=== PATIENT | female | born 1930 | race Caucasian/White ===

== ENCOUNTER 2017-02-22 22:06 | Observation (INO) ==
[2017-02-22 23:21] LABS: Bilirubin,Urine Negative (Negative); Blood,Urine Negative (Negative); Clarity,Urine Clear (Clear); Color,Urine Yellow (Yellow); Glucose,Urine (UA) Normal (Normal); Ketones,Urine Negative (Negative); Leukocyte Esterase,Urine Negative (Negative); Nitrite,Urine Negative (Negative); Protein,Urine Negative (Neg-Trace); Specific Gravity,Urine < 1.005 (1.010-1.025); Urobilinogen,Urine Normal (Normal)
[2017-02-22 23:25] LABS: Basophils % 0.4 %; Eosinophils % 0.6 %; Hematocrit 35.1 % (35.3-44.9); Hemoglobin 11.9 g/dL (11.5-15.4); Immature Granulocytes % 0.9 % (0-4); Lymphocytes # 0.8 K/mcL (0.6-4.6); Lymphocytes % 12.2 %; Mean Corpuscular HGB Conc 33.9 g/dL (31.6-35.5); Mean Corpuscular Hemoglobin 29.2 pg (28.0-33.3); Mean Corpuscular Volume 86.2 fL (83.0-100.0); Mean Platelet Volume 10.4 fL (9.4-12.4); Monocytes # 0.5 K/mcL (0.0-1.3); Monocytes % 6.8 %; Neutrophils # 5.4 K/mcL (1.6-8.9); Platelet Count 172 K/mcL (140-400); Red Blood Count 4.07 M/mcL (3.82-4.97); Red Cell Distribution Width 13.2 % (11.5-14.5); Segmented Neutrophils % 79.1 %
[2017-02-22 23:29] LABS: INR 1.1; Prothrombin Time 11.6 Seconds (9.4-12.1)
[2017-02-22 23:32] LABS: Activated Partial Thrombo Time 21.1 Seconds (26.0-36.0)
[2017-02-23 00:32] LABS: Alanine Aminotransferase 36 Units/L (0-55); Albumin 4.2 g/dL (3.5-5.0); Albumin/Globulin Ratio 1.3 (1.1-2.2); Alkaline Phosphatase 88 Units/L (38-126); Aspartate Amino Transferase 32 Units/L (5-34); BUN/Creatinine Ratio 14 (6-26); Bilirubin,Direct 0.3 mg/dL (0.0-0.5); Bilirubin,Indirect 0.3 mg/dL (0.0-1.2); Bilirubin,Total 0.6 mg/dL (0.2-1.2); Blood Urea Nitrogen 14 mg/dL (7-20); Calcium 9.8 mg/dL (8.6-10.8); Carbon Dioxide 19 mEq/L (19-29); Chloride 96 mEq/L (98-109); Creatine Kinase 313 Units/L (29-168); Globulin 3.3 g/dL (2.4-3.5); Glucose 135 mg/dL (70-99); Osmolality,Calculated 269 (280-300); Potassium 4.1 mEq/L (3.5-4.5); Sodium 128 mEq/L (136-145); Total Protein 7.5 g/dL (6.0-8.3); eGFR For African Americans > 60 (> 60); eGFR For Non-African Americans 53 (> 60)
[2017-02-23] MEDS ORDERED: *HR* HYDROmorphone (PF) 1 MG/ML SYRINGE IVP ONE (00:35)
--- NOTE | 2017-02-23 00:39 | Emergency Department Note ---
Disposition Clinical Impression: Unwitnessed fall, Elevated blood pressure reading Disposition: Admitted As Inpatient Condition: Good Referrals: Kota Rubi MD [Primary Care Provider] - Forms: ED Satisfaction Letter Time of Disposition: 01:20 General Adult HPI - General Chief complaint: ED Back Pain/Injury Stated complaint: Fall/Left flank pain Time Seen by Provider: 02/22/17 22:14 Source: patient Mode of arrival: ambulatory Limitations: no limitations Nursing Notes Reviewed: Yes Vital Signs Reviewed: Yes - History of Present Illness HPI Narrative: 86-year-old female brought to the emergency department by EMS after a fall at home. Patient fall was unwitnessed and she is unable to give a history regarding her case and presentation. Patient is confused upon initial arrival to the emergency department and has difficulty providing history during the exam. Patient was recently seen in the emergency department for headache with elevated blood pressure. She was given Lopressor which decreased her blood pressure and she was sent home. Patient denies headache or chest pain or shortness of breath in the emergency department. She does complain of pain to the left ribs secondary to falling. Patient denies recent fever, chills, nausea , vomiting, diarrhea. Pain Scale: 7 - Related Data Home Medications Medication Instructions Recorded Confirmed Aspirin Enteric Coated [Aspirin EC] 81 mg PO DAILY 01/27/15 01/27/15 Cholecalciferol (Vitamin D3) 1,000 unit PO DAILY 01/27/15 01/27/15 [Vitamin D] Docusate [Colace] 100 mg PO BID 01/27/15 01/27/15 Doxepin [Sinequan] 150 mg PO HS 01/27/15 01/27/15 Esomeprazole Magnesium [Nexium] 40 mg PO DAILY 01/27/15 01/27/15 HYDROmorphone [Dilaudid] 2 mg PO Q6HR PRN 01/27/15 01/27/15 LORazepam [Ativan] 0.5 mg PO BID 01/27/15 01/27/15 Losartan [Cozaar] 100 mg PO DAILY 01/27/15 01/27/15 Metoprolol XL (24 HR) Succ [Toprol 100 mg PO DAILY 01/27/15 01/27/15 XL] Oxybutynin [Ditropan] 5 mg PO BID 09/09/15 09/09/15 Simvastatin [Zocor] 20 mg PO QPM 01/27/15 01/27/15 Previous Rx's Medication Instructions Recorded Ciprofloxacin HCl [Cipro] 250 mg PO BID #6 tablet 04/19/15 Phenazopyridine HCl [Pyridium] 200 mg PO TID #6 tab 04/19/15 Ondansetron HCl [Zofran] 4 mg PO Q6HR PRN #10 tablet 10/02/15 Ciprofloxacin [Cipro] 500 mg PO BID #14 tablet 12/01/16 Allergies Allergy/AdvReac Type Severity Reaction Status Date / Time acetaminophen [From Percocet] AdvReac Rash Verified 10/28/16 13:26 Oxycodone [From Percocet] AdvReac Rash Verified 10/28/16 13:26 Penicillins AdvReac Itching Verified 10/28/16 13:26 Sulfa (Sulfonamide AdvReac Vomiting Verified 10/28/16 13:26 Antibiotics) All systems ED: reviewed and negative except as stated. Review of Systems: As Per HPI Constitutional: Denies: fever, chills, weakness Cardiovascular: Denies: chest pain, palpitations Respiratory: Denies: cough, dyspnea, wheezes Gastrointestinal: Denies: abdominal pain, nausea, vomiting Genitourinary: Denies: urgency, dysuria, frequency Musculoskeletal: Reports: back pain. Denies: neck pain Past Medical History - Past Medical History Attestation: Yes The following information was validated with the patient. Source: patient Medical history: Reports: diabetes, hypertension, other Surgical history: Reports: appendectomy, , cancer surgery, colectomy, orthopedic, other, other Psychiatric history: Reports: no psych history COMPENSATION EXPERT history: Reports: no COMPENSATION EXPERT history - Social History Smoking Status: Never smoker Smokeless Tobacco Status: No Alcohol use: Reports: none Drug use: Reports: none Physical Exam General: Alert and in no acute distress Skin: Warm, dry, intact Head: Normocephalic and atraumatic Neck: Supple, trachea midline and no tenderness Cardiovascular: RRR, normal perfusion Respiratory: CTAB, no wheezing, cough, or respiratory distress Musculoskeletal: Normal strength, tenderness to palpation of the left inferior lateral ribs. GI: Soft, nontender, nondistended. Bowel sounds present Neuro: Oriented to person and place but not to situation. Patient moving all extremities equally, she is able to perform finger to nose testing however this is with difficulty. - General General appearance: alert, in no apparent distress Course Course Narrative: accepted sign out from Dr. Sanches, plan is to followup on CT scans and admit to medicine for syncope/hypertension ray will need an inhouse MRRodolfo Vital Signs Temperature 98.0 F 02/22/17 22:08 Pulse Rate 89 02/22/17 22:08 Respiratory Rate 16 02/22/17 22:08 Blood Pressure 198/142 02/22/17 22:08 O2 Sat by Pulse Oximetry 97 02/22/17 22:08 Temperature 98.0 F 02/22/17 22:08 Pulse Rate 82 02/22/17 23:13 Respiratory Rate 16 02/22/17 23:13 Blood Pressure 191/79 02/22/17 23:13 O2 Sat by Pulse Oximetry 98 02/22/17 23:13 Oxygen Delivery Oxygen Delivery Room Air Medical Decision Making - MDM Narrative Medical decision making narrative: Patient unable to provide history regarding why she fell. She does state that she does not believe she had chest pain prior to fall. Upon review of the patient's chart she has a history of significant narcotic use using Dilaudid 2 mg every 6 hours by mouth as needed for pain. She does state that she used her pain medications prior to the fall. Blood pressure was initially elevated at 210/90 on her initial evaluation. This improved with observation and control of the patient's pain in the left inferior lateral ribs and left upper quadrant abdomen. Patient is comfortable with the plan for admission to the hospital for further care and evaluation of her unwitnessed fall and her elevated blood pressures. - Medical Records Medical records reviewed: Yes I reviewed the patient's medical records. - Lab Data Lab results reviewed: Yes I reviewed the patient's lab results. Result diagrams: 02/22/17 23:00 02/23/17 00:02 Lab Results 02/22/17 02/22/17 02/22/17 Range/Units 23:00 23:00 23:13 WBC 6.8 (4.3-11.1) K/mcL RBC 4.07 (3.82-4.97) M/mcL Hgb 11.9 (11.5-15.4) g/dL Hct 35.1 L (35.3-44.9) % MCV 86.2 (83.0-100.0) fL MCH 29.2 (28.0-33.3) pg MCHC 33.9 (31.6-35.5) g/dL RDW 13.2 (11.5-14.5) % Plt Count 172 (140-400) K/mcL MPV 10.4 (9.4-12.4) fL Immature Gran % 0.9 (0-4) % Seg Neutrophils % 79.1 % Lymphocytes % 12.2 % Monocytes % 6.8 % Eosinophils % 0.6 % Basophils % 0.4 % Neutrophils # 5.4 (1.6-8.9) K/mcL Lymphocytes # 0.8 (0.6-4.6) K/mcL Monocytes # 0.5 (0.0-1.3) K/mcL Eosinophils # 0.0 (0.0-0.6) K/mcL Basophils # 0.0 (0.0-0.2) K/mcL PT 11.6 (9.4-12.1) Seconds INR 1.1 APTT 21.1 L (26.0-36.0) Seconds Sodium (136-145) mEq/L Potassium (3.5-4.5) mEq/L Chloride (98-109) mEq/L Carbon Dioxide (19-29) mEq/L BUN (7-20) mg/dL Creatinine (0.57-1.11) mg/dL Est GFR ( Amer) (> 60) Est GFR (Non-Af Amer) (> 60) BUN/Creatinine Ratio (6-26) Glucose (70-99) mg/dL Calculated Osmolality (280-300) Calcium (8.6-10.8) mg/dL Total Bilirubin (0.2-1.2) mg/dL Direct Bilirubin (0.0-0.5) mg/dL Indirect Bilirubin (0.0-1.2) mg/dL AST (5-34) Units/L ALT (0-55) Units/L Alkaline Phosphatase (38-126) Units/L Creatine Kinase (29-168) Units/L Troponin I (0-0.03) ng/mL Serum Total Protein (6.0-8.3) g/dL Albumin (3.5-5.0) g/dL Globulin (2.4-3.5) g/dL Albumin/Globulin Ratio (1.1-2.2) Urine Color Yellow (Yellow) Urine Clarity Clear (Clear) Urine pH 7.0 (5.0-8.0) pH Units Ur Specific Coleman < 1.005 L (1.010-1.025) Urine Protein Negative (Neg-Trace) mg/dL Urine Glucose (UA) Normal (Normal) mg/dL Urine Ketones Negative (Negative) mg/dL Urine Blood Negative (Negative) Urine Nitrite Negative (Negative) Urine Bilirubin Negative (Negative) Urine Urobilinogen Normal (Normal) mg/dL Ur Leukocyte Esterase Negative (Negative) Ur Culture Indicated? NO (NO) Specimen Rejected 02/22/17 02/23/17 02/23/17 Range/Units 23:28 00:02 00:02 WBC (4.3-11.1) K/mcL RBC (3.82-4.97) M/mcL Hgb (11.5-15.4) g/dL Hct (35.3-44.9) % MCV (83.0-100.0) fL MCH (28.0-33.3) pg MCHC (31.6-35.5) g/dL RDW (11.5-14.5) % Plt Count (140-400) K/mcL MPV (9.4-12.4) fL Immature Gran % (0-4) % Seg Neutrophils % % Lymphocytes % % Monocytes % % Eosinophils % % Basophils % % Neutrophils # (1.6-8.9) K/mcL Lymphocytes # (0.6-4.6) K/mcL Monocytes # (0.0-1.3) K/mcL Eosinophils # (0.0-0.6) K/mcL Basophils # (0.0-0.2) K/mcL PT (9.4-12.1) Seconds INR APTT (26.0-36.0) Seconds Sodium 128 L (136-145) mEq/L Potassium 4.1 (3.5-4.5) mEq/L Chloride 96 L (98-109) mEq/L Carbon Dioxide 19 (19-29) mEq/L BUN 14 (7-20) mg/dL Creatinine 1.00 (0.57-1.11) mg/dL Est GFR ( Amer) > 60 (> 60) Est GFR (Non-Af Amer) 53 L (> 60) BUN/Creatinine Ratio 14 (6-26) Glucose 135 H (70-99) mg/dL Calculated Osmolality 269 L (280-300) Calcium 9.8 (8.6-10.8) mg/dL Total Bilirubin 0.6 (0.2-1.2) mg/dL Direct Bilirubin 0.3 (0.0-0.5) mg/dL Indirect Bilirubin 0.3 (0.0-1.2) mg/dL AST 32 (5-34) Units/L ALT 36 (0-55) Units/L Alkaline Phosphatase 88 (38-126) Units/L Creatine Kinase 313 H (29-168) Units/L Troponin I 0.02 (0-0.03) ng/mL Serum Total Protein 7.5 (6.0-8.3) g/dL Albumin 4.2 (3.5-5.0) g/dL Globulin 3.3 (2.4-3.5) g/dL Albumin/Globulin Ratio 1.3 (1.1-2.2) Urine Color (Yellow) Urine Clarity (Clear) Urine pH (5.0-8.0) pH Units Ur Specific Coleman (1.010-1.025) Urine Protein (Neg-Trace) mg/dL Urine Glucose (UA) (Normal) mg/dL Urine Ketones (Negative) mg/dL Urine Blood (Negative) Urine Nitrite (Negative) Urine Bilirubin (Negative) Urine Urobilinogen (Normal) mg/dL Ur Leukocyte Esterase (Negative) Ur Culture Indicated? (NO) Specimen Rejected Hemolyzed - Radiology Data Radiology results reviewed: Yes I reviewed the patient's radiology results. - EKG Data EKG #1 EKG attestation: Yes I reviewed and interpreted this EKG. EKG results narrative: ECG - interpreted by ED physician. Rate 85, normal sinus rhythm, no STEMI, [place], QT intervals, and QRS within normal limits
[2017-02-23] MEDS ORDERED: Naloxone 0.4 MG/ML INJ IVP PRN (02:55)
[2017-02-23] MEDS ORDERED: *HR* Promethazine 25 MG/ML VIAL IVP PRN (02:56)
[2017-02-23] MEDS ORDERED: Ondansetron 4 MG/2 ML VIAL IVP PRN (02:56)
[2017-02-23] MEDS ORDERED: Acetaminophen 325 MG TABLET PO PRN (02:56)
[2017-02-23] MEDS ORDERED: *HR* LORazepam 0.5 MG TABLET PO PRN (02:58)
--- NOTE | 2017-02-23 03:04 | Internal Med History&Physical ---
Date of Encounter: 02/23/17 Time of Encounter: 02:00 Assessment and Plan (1) Syncope Current visit: Yes Status: Acute Will place the pt into tele for observation unclear wtheter she had syncope or mechanical fall will place her on application development director trend troponin so far negative trop EKG - NSR, VR [address] T changes will get 2 D Echo in AM Also get Carotid Doppler Qualifiers: Qualified Code(s): R55 - Syncope and collapse (2) Hyponatremia Current visit: Yes Status: Acute mild hyponatremia due to dehydration started on IV fluids (3) Unwitnessed fall Current visit: Yes Status: Acute PT / OT eval reviewed CT of Head, Cerival Spine, Abd / Pelvis - no acute fx Ordered X ray of Rt hand - showing non displaced fx of distal phalanx of little finger IV analgesics PRN (4) Dehydration Current visit: Yes Status: Acute (5) Fracture of proximal phalanx of digit of right hand Current visit: Yes Status: Acute PT / OT eval will consult Ortho in AM Pain meds Qualifiers: Encounter type: initial encounter Qualified Code(s): S62.619A - Displaced fracture of proximal phalanx of unspecified finger, initial encounter for closed fracture (6) Accelerated hypertension Current visit: No Status: Acute Fairly controlled could be due to pain will give her pain meds also resumed all her home BP meds Will give hydrazine IV PRN (7) Chronic pain Current visit: No Status: Acute resumed home pain meds Qualifiers: Qualified Code(s): G89.4 - Chronic pain syndrome (8) DVT prophylaxis Current visit: No Status: Acute on Lovenox Internal Medicine - H&P: HPI Chief complaint: Fall Admitted From: Emergency Dept Plans for Post Hospital Care: Home History of present illness: Ms. De Guzman is a 86 year old female with known PMH of HTN, HLD, who lives by herself was brought to the emergency department by EMS after a fall at home. Patient fall was unwitnessed and she is unable to give a history wether she passed out or how the fall happened. She does have mild bruise over Rt side of forehead and Rt hand medially. Patient denies headache or chest pain or shortness of breath. She does complain of pain to the left ribs secondary to falling. Patient denies recent fever, chills, nausea, vomiting, diarrhea. Past Med Surg Social Fam HX - Past Medical History Medical history: diabetes, hypertension, other Psychiatric history: no psych history - Past Surgical History Surgical History: appendectomy, , cancer surgery, orthopedic, other, other - Social History Smoking Status: Never smoker Smokeless Tobacco Status: No Alcohol use: none Drug use: none - Family History Father Adopted: [place]: Javi Rodarte Family Member Ethnicity: Non- Living Status: Age at : 86 Cause of : hemmorhage Hx Family Cardiac Disorders: No Hx Family Respiratory Disorders: No Hx Family GI Disorders: No Hx Family Genitourinary Disorders: No Hx Family Endocrine Disorder: No Mother Adopted: No Family Member Ethnicity: Non- Living Status: Hx Family Cardiac Disorders: No Hx Family Respiratory Disorders: No Hx Family Cancer: Yes Hx Family GI Disorders: No Hx Family Endocrine Disorder: No Hx Family Neuromuscular Disorders: No Hx Family Neurologic Disorders: No Hx Family HEENT Disorders: No Hx Family Autoimmune Disorders: No Internal Medicine - H&P: Meds Aspirin Enteric Coated [Aspirin EC] 81 mg PO DAILY 01/27/15 [History] Cholecalciferol (Vitamin D3) [Vitamin D] 1,000 unit PO DAILY 01/27/15 [History] Docusate [Colace] 100 mg PO BID 01/27/15 [History] Doxepin [Sinequan] 150 mg PO HS 01/27/15 [History] Esomeprazole Magnesium [Nexium] 40 mg PO DAILY 01/27/15 [History] HYDROmorphone [Dilaudid] 2 mg PO Q6HR PRN 01/27/15 [History] LORazepam [Ativan] 0.5 mg PO BID 01/27/15 [History] Losartan [Cozaar] 100 mg PO DAILY 01/27/15 [History] Metoprolol XL (24 HR) Succ [Toprol XL] 100 mg PO DAILY 01/27/15 [History] Oxybutynin [Ditropan] 5 mg PO BID 01/27/15 [History] Simvastatin [Zocor] 20 mg PO QPM 01/27/15 [History] Ciprofloxacin HCl [Cipro] 250 mg PO BID #6 tablet 04/19/15 [Rx] Phenazopyridine HCl [Pyridium] 200 mg PO TID #6 tab 04/19/15 [Rx] Ondansetron HCl [Zofran] 4 mg PO Q6HR PRN #10 tablet 10/02/15 [Rx] Ciprofloxacin [Cipro] 500 mg PO BID #14 tablet 12/01/16 [Rx] 3 Allergy/AdvReac Type Severity Reaction Status Date / Time acetaminophen [From Percocet] AdvReac Rash Verified 10/28/16 13:26 Oxycodone [From Percocet] AdvReac Rash Verified 10/28/16 13:26 Penicillins AdvReac Itching Verified 10/28/16 13:26 Sulfa (Sulfonamide AdvReac Vomiting Verified 10/28/16 13:26 Antibiotics) All Systems PM: A 10-system review of systems was performed and is negative for pertinent findings except as documented above in the HPI. Review of systems: All the systems are reviewed everything is benign except the systems and symptoms I mentioned in the history of present illness - Constitutional Vitals: Temp Pulse Resp BP Pulse Ox 97.7 F 87 17 172/72 98 02/23/17 02:51 02/23/17 02:51 02/23/17 02:51 02/23/17 02:51 02/23/17 02:51 General appearance: Present: A&O X 3, no acute distress, answers questions appropriately Exam: Looks lethargic / weak - Dry mucous membranes - Head Head exam: Present: atraumatic, normal inspection - Respiratory Respiratory exam: Present: decreased breath sounds, wheezes. Absent: rales, respiratory distress, rhonchi - Cardiovascular Cardiovascular exam: Present: RRR, +S1, +S2. Absent: systolic murmur - GI/Abdominal GI/Abdominal exam: Present: normal bowel sounds, soft, tenderness (moderate discomfort LUQ below ribs). Absent: rebound, rigid - Extremities Exam Extremities exam: Absent: calf tenderness, pedal edema Additional comments: small bruise over Rt hand at distal phalanx of little finger - Back Exam Back exam: Absent: CVA tenderness (L), CVA tenderness (R) - Neurological Exam Neurological exam: Present: alert, oriented X3 - Psychiatric Psychiatric exam: Present: normal affect, normal mood - Skin Skin exam: Present: dry Internal Med - H&P Results - Labs CBC & Chem 7: 02/22/17 23:00 02/23/17 00:02 - Impressions ITS Impressions Hand X-Ray 02/23/17 02:03 IMPRESSION: Suspect acute nondisplaced fracture at the base of the proximal phalanx of the little finger. D/ / Albin Atkinson MD / Albin Atkinson MD Interpreting Provider: Albin Atkinson MD
[2017-02-23] MEDS: 0.9 % Sodium Chloride 1,000 ML IVC SCH ×2 (03:35→17:40)
[2017-02-23] MEDS: *HR* Morphine 2 MG/ML SYRINGE IVP PRN ×2 (03:38→07:58)
[2017-02-23 05:37] LABS: BUN/Creatinine Ratio 14 (6-26); Blood Urea Nitrogen 14 mg/dL (7-20); Calcium 9.7 mg/dL (8.6-10.8); Carbon Dioxide 27 mEq/L (19-29); Chloride 96 mEq/L (98-109); Glucose 137 mg/dL (70-99); Osmolality,Calculated 279 (280-300); Potassium 3.8 mEq/L (3.5-4.5); Sodium 133 mEq/L (136-145); eGFR For African Americans > 60 (> 60); eGFR For Non-African Americans 52 (> 60)
[2017-02-23] MEDS ORDERED: *HR* Enoxaparin 40 MG/0.4 ML SYRINGE SQ SCH (06:00)
[2017-02-23] MEDS: Metoprolol XL (24 HR) Succ 50 MG TAB.ER.24H PO SCH (07:57)
[2017-02-23] MEDS: Aspirin Enteric Coated 81 MG Tablet PO SCH (07:58)
[2017-02-23] MEDS: Cholecalciferol (D-3) 1,000 UNIT TABLET PO SCH (07:58)
[2017-02-23] MEDS ORDERED: Fluconazole 100 MG TABLET PO ONE (13:29)
[2017-02-23] MEDS ORDERED: *HR* HYDROcodone/Acet 10/325 mg TABLET PO PRN ×2 (13:30→13:33)
[2017-02-23] MEDS ORDERED: Sennosides/Docusate Sodium TABLET PO PRN (13:30)
--- NOTE | 2017-02-23 13:32 | Internal Med Progress Note ---
Date of Encounter: 02/23/17 Time of Encounter: 13:30 - Assessment and plan (1) Syncope Current Visit: Yes Status: Acute Assessment and plan: check orthostatics Fall precautions repeat U/A complaining of vaginal pain, Yeast infection , give one dose of Fluconazole Tele, echo pending May go to F CT head chest abdomen unremarkable Qualifiers: Qualified Code(s): R55 - Syncope and collapse (2) Fracture of proximal phalanx of digit of right hand Current Visit: Yes Status: Acute Assessment and plan: immobilization [facility] Qualifiers: Encounter type: initial encounter Qualified Code(s): S62.619A - Displaced fracture of proximal phalanx of unspecified finger, initial encounter for closed fracture (3) Accelerated hypertension Current Visit: No Status: Acute Assessment and plan: Losartan (4) Diabetes Current Visit: No Status: Chronic Assessment and plan: ISS Qualifiers: Diabetes mellitus type: type 2 Diabetes mellitus complication status: without complication Diabetes mellitus intermediate project manager insulin use: without intermediate project manager use Qualified Code(s): E11.9 - Type 2 diabetes mellitus without complications (5) Unwitnessed fall Current Visit: Yes Status: Acute (6) Hyponatremia Current Visit: Yes Status: Acute Assessment and plan: improving (7) Dehydration Current Visit: Yes Status: Acute Assessment and plan: IVF - Constitutional Vitals: Temp Pulse Resp BP Pulse Ox 97.6 F 75 17 159/71 97 02/23/17 11:29 02/23/17 11:29 02/23/17 11:29 02/23/17 11:29 02/23/17 11:29 General appearance: Present: A&O X 3, no acute distress, answers questions appropriately Exam: bruises over face and hematoma in right 5th finger, edematous. - Head Head exam: Present: atraumatic, normocephalic - Eye Eye exam: Present: PERRL, conjuntiva pink, sclera anicteric Pupils: Present: PERRL - Neck Neck exam general surgery: Present: supple, trachea midline. Absent: lymphadenopathy - Respiratory Respiratory exam: Present: CTAB. Absent: accessory muscle use, rales, rhonchi, wheezes - Cardiovascular Cardiovascular exam: Present: RRR, +S1, +S2. Absent: diastolic murmur, gallop, rubs, systolic murmur - GI/Abdominal GI/Abdominal exam: Present: normal bowel sounds, soft, no peritoneal signs. Absent: distended, tenderness - Extremities Exam Extremities exam: Present: warm, radial pulses palpable and symmetrical. Absent : calf tenderness, cyanotic, pedal edema - Neurological Exam Neurological exam: Present: CN II-XII intact, oriented X3, no focal deficits. Absent: pronater drift, facial droop, speech deficit - Skin Skin exam: Present: dry, intact Internal Medicine: Result - Labs CBC & Chem 7: 02/22/17 23:00 02/23/17 04:22 Labs: BMP 02/23/17 04:22 Sodium 133 L Potassium 3.8 Chloride 96 L Carbon Dioxide 27 BUN 14 Creatinine 1.02 Glucose 137 H Calcium 9.7 Cardiac Enzymes 02/23/17 Range/Units 04:22 Troponin I 0.01 (0-0.03) ng/mL - ABG Interpretation ABG results: PT/INR, D-dimer PT 11.6 Seconds (9.4-12.1) 02/22/17 23:00 - Impressions Impressions Hand X-Ray 02/23/17 02:03 IMPRESSION: Suspect acute nondisplaced fracture at the base of the proximal phalanx of the little finger. D/ / Albin Atkinson MD / Albin Atkinson MD Interpreting Provider: Albin Atkinson MD Consult Discharge Plan - Plan Referrals: Kota Rubi MD [Primary Care Provider] -
[2017-02-23] MEDS ORDERED: *HR* Dextrose 50 % in Water (Syg) 50 ML SYRINGE IVP PRN (13:33)
[2017-02-23] MEDS ORDERED: Dextrose Gel 15 GM PO PRN ×2 (13:33)
[2017-02-23] MEDS ORDERED: D5% in Water 1,000 ML IVC PRN (13:33)
[2017-02-23 14:30] LABS: Bilirubin,Urine Negative (Negative); Blood,Urine Negative (Negative); Clarity,Urine Clear (Clear); Color,Urine Yellow (Yellow); Glucose,Urine (UA) Normal (Normal); Ketones,Urine Negative (Negative); Leukocyte Esterase,Urine Small (Negative); Nitrite,Urine Negative (Negative); Protein,Urine Negative (Neg-Trace); Specific Gravity,Urine 1.013 (1.010-1.025); Urobilinogen,Urine Normal (Normal)
[2017-02-23 15:06] LABS: Renal Epithelial Cells,Urine Few per hpf (None-Few); Squamous Epithelial Cell,Urine Few per lpf (None-Few); Transitional Epi Cells,Urine Few per hpf (None-Few)
[2017-02-23 15:09] LABS: Bacteria,Urine Few per hpf (None-Few); RBC,Urine 0-3 per hpf (0-3)
--- NOTE | 2017-02-23 15:33 | Orthopedic Consult Note ---
Date of Encounter: 02/23/17 Time of Encounter: 15:32 Assessment and Plan (1) Fracture of proximal phalanx of digit of right hand Current Visit: Yes Status: Acute This is a stable nondisplaced fracture. The patient will be placed into an ulnar gutter brace. Discussed with patient that she may remove the brace for hygiene. Minimal lifting with right hand. Follow-up in the office in 1 week's time. Qualifiers: Encounter type: initial encounter Fracture type: closed Qualified Code(s) : S62.619A - Displaced fracture of proximal phalanx of unspecified finger, initial encounter for closed fracture History of Present Illness Chief complaint: Consult for right hand fracture HPI: Ms. De Guzman is a 86 year old female who lost her balance and falling, while trying to catch a self she believe she had a right hand sustaining a small finger fracture. Patient reports minimal pain. Patient is being hospitalized for syncope workup. Past Med Surg Social Fam HX - Past Medical History Medical history: diabetes, hypertension, other Psychiatric history: no psych history - Past Surgical History Surgical History: appendectomy, , cancer surgery, orthopedic, other, other - Social History Smoking Status: Never smoker Smokeless Tobacco Status: No Alcohol use: none Drug use: none - Family History Father Adopted: [place]: Javi Rodarte Family Member Ethnicity: Non- Living Status: Age at : 86 Cause of : hemmorhage Hx Family Cardiac Disorders: No Hx Family Respiratory Disorders: No Hx Family GI Disorders: No Hx Family Genitourinary Disorders: No Hx Family Endocrine Disorder: No Mother Adopted: No Family Member Ethnicity: Non- Living Status: Hx Family Cardiac Disorders: No Hx Family Respiratory Disorders: No Hx Family Cancer: Yes Hx Family GI Disorders: No Hx Family Endocrine Disorder: No Hx Family Neuromuscular Disorders: No Hx Family Neurologic Disorders: No Hx Family HEENT Disorders: No Hx Family Autoimmune Disorders: No Medications and Allergies Aspirin Enteric Coated [Aspirin EC] 81 mg PO DAILY 01/27/15 [History] Cholecalciferol (Vitamin D3) [Vitamin D] 1,000 unit PO DAILY 01/27/15 [History] Docusate [Colace] 100 mg PO BID 01/27/15 [History] HYDROmorphone [Dilaudid] 2 mg PO Q12H PRN 01/27/15 [History] Simvastatin [Zocor] 20 mg PO QPM 01/27/15 [History] Ciprofloxacin HCl [Cipro] 250 mg PO BID #6 tablet 04/19/15 [Rx] Doxepin HCl 150 mg PO HS 02/23/17 [History] Levothyroxine Sodium 50 mcg PO QAM 02/23/17 [History] Losartan Potassium [Cozaar] 100 mg PO DAILY 02/23/17 [History] Metoprolol XL (24 HR) Succ [Toprol XL] 25 mg PO DAILY 02/23/17 [History] Omeprazole [PriLOSEC] 40 mg PO DAILY 02/23/17 [History] Polyethylene Glycol 3350 [MiraLAX bowel prep] 17 gm PO DAILY PRN 02/23/17 [ History] 3 Allergy/AdvReac Type Severity Reaction Status Date / Time Oxycodone [From Percocet] AdvReac Rash Verified 10/28/16 13:26 Penicillins AdvReac Itching Verified 10/28/16 13:26 Sulfa (Sulfonamide AdvReac Vomiting Verified 10/28/16 13:26 Antibiotics) All Systems Reviewed: A 10-system review of systems was performed and is negative for pertinent findings except as documented above in the HPI. Physical Exam - Constitutional Vitals: Temp Pulse Resp BP Pulse Ox 97.6 F 89 17 160/69 97 02/23/17 11:29 02/23/17 14:58 02/23/17 11:29 02/23/17 14:58 02/23/17 11:29 - Wrist & Hand right Location of pain: small finger (Positive ecchymosis and dorsum of ring and small fingers which are jenn taped.) Wrist pain modifiers: with motion Tenderness with palpation: small finger (At the base of proximal phalanx) Full ROM: wrist: yes Full ROM: fingers: yes (The mid range of motion of digits, no pain, no malrotation noted) Results - Labs Result Diagrams: 02/22/17 23:00 02/23/17 04:22 Labs: Abnormal lab results Hct 35.1 % (35.3-44.9) L 02/22/17 23:00 APTT 21.1 Seconds (26.0-36.0) L 02/22/17 23:00 Sodium 133 mEq/L (136-145) L 02/23/17 04:22 Chloride 96 mEq/L (98-109) L 02/23/17 04:22 Est GFR (Non-Af Amer) 52 (> 60) L 02/23/17 04:22 Glucose 137 mg/dL (70-99) H 02/23/17 04:22 POC Glucose 145 (58-89) H 02/22/17 22:49 Calculated Osmolality 279 (280-300) L 02/23/17 04:22 Creatine Kinase 313 Units/L (29-168) H 02/23/17 00:02 Ur Leukocyte Esterase Small (Negative) H 02/23/17 14:12 Urine Microscopic WBC 5-15 per hpf (0-3) H 02/23/17 14:12 All other labs normal. - Diagnostic results Wrist/Hand x-ray: image reviewed (Nondisplaced right small finger P1 base fracture) Consult Discharge Plan - Plan Referrals: Kota Rubi MD [Primary Care Provider] -
--- NOTE | 2017-02-23 15:50 | Carotid Imaging Report ---
Carotid Duplex Patient Name:Margaret De Guzman Order Number:[id number] Procedure Date:02/23/2017 Date:2Age:86 yrs Gender:Female Rt.BP:176 / 75 mmHgHeart Rate: Location:[facility] Room #: 2A43 Case Coordinator:Maira Vega, TIAAN, RVT Referring MD:Asim Moore MD Reading MD:Camacho Browning MD Primary Indications:Syncope and collapse Risk Factors Yes/No Hypertension Yes Diabetes Yes Impressions: The bilateral carotid arteries have minimal plaque throughout. Recommendations: After imaging the patient returned to their room. Findings Carotid Duplex: Right: The right proximal common carotid artery has a PSV of 62 cm/s and a EDV of 12 cm/s. The right mid common carotid artery has a PSV of 58 cm/s and a EDV of 14 cm/s. The right distal common carotid artery has a PSV of 55 cm/s and a EDV of 16 cm/s. The right bifurcation has a PSV of 62 cm/s and a EDV of 19 cm/s. The right proximal internal carotid artery has a PSV of 84 cm/s and a EDV of 28 cm/s. The right mid internal carotid artery has a PSV of 66 cm/s and a EDV of 22 cm/s. The right distal internal carotid artery has a PSV of 69 cm/s and a EDV of 23 cm/s. The right eca has a PSV of 87 cm/s and a EDV of 13 cm/s. The right vertebral artery has a PSV of 42 cm/s and a EDV of 15 cm/s. Left: The left proximal common carotid artery has a PSV of 85 cm/s and a EDV of 14 cm/s. The left mid common carotid artery has a PSV of 62 cm/s and a EDV of 15 cm/s. The left distal common carotid artery has a PSV of 68 cm/s and a EDV of 13 cm/s. The left bifurcation has a PSV of 75 cm/s and a EDV of 17 cm/s. The left proximal internal carotid artery has a PSV of 64 cm/s and a EDV of 18 cm/s. The left mid internal carotid artery has a PSV of 81 cm/s and a EDV of 24 cm/s. The left distal internal carotid artery has a PSV of 96 cm/s and a EDV of 26 cm/s. The left eca has a PSV of 128 cm/s and a EDV of 8 cm/s. The left vertebral artery has a PSV of 59 cm/s and a EDV of 13 cm/s. Prior Study: No prior study available for comparison. Carotid Results Right PSV EDV Assessment Proximal CCA 62 12 Mid CCA 58 14 Distal CCA 55 16 Bifurcation 62 19 Proximal ICA 84 28 Non Stenotic Plaque Mid ICA 66 22 Distal ICA 69 23 ECA 87 13 Vertebral Artery 42 15 Antegrade Flow Left PSV EDV Assessment Proximal CCA 85 14 Mid CCA 62 15 Distal CCA 68 13 Bifurcation 75 17 Non Stenotic Plaque Proximal ICA 64 18 Mid ICA 81 24 Distal ICA 96 26 ECA 128 8 Vertebral Artery 59 13 Antegrade Flow Ratio's Right ICA/CCA Ratio: 1.45 ICA/CCA Values: 84/58 Left ICA/CCA Ratio: 1.55 ICA/CCA Values: 96/62 Updated by Camacho Browning MD on 02/23/2017 3:40:42 PM electronically signed on 02/23/2017 3:43:04 PM with status of Final
[2017-02-23] MEDS: Insulin LISPRO 300 UNITS/3 ML VIAL SQ SCH (16:19)
--- NOTE | 2017-02-23 19:11 | Electrocardiograph Report ---
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
[2017-02-23] MEDS: *HR* HYDROcodone/Acet 5/325 mg TABLET PO PRN (20:57)
[2017-02-23] MEDS ORDERED: Insulin LISPRO 300 UNITS/3 ML VIAL SQ SCH (21:00)
[2017-02-24] MEDS: *HR* HYDROcodone/Acet 5/325 mg TABLET PO PRN ×2 (04:13→08:03)
[2017-02-24] MEDS: 0.9 % Sodium Chloride 1,000 ML IVC SCH (04:14)
[2017-02-24] MEDS ORDERED: *HR* Enoxaparin 30 MG/0.3 ML SYRINGE SQ SCH (06:00)
[2017-02-24] MEDS: Cholecalciferol (D-3) 1,000 UNIT TABLET PO SCH (08:03)
[2017-02-24] MEDS: Aspirin Enteric Coated 81 MG Tablet PO SCH (08:03)
[2017-02-24] MEDS: Insulin LISPRO 300 UNITS/3 ML VIAL SQ SCH (08:03)
[2017-02-24] MEDS: Metoprolol XL (24 HR) Succ 50 MG TAB.ER.24H PO SCH (08:03)
[2017-02-24] MEDS ORDERED: Nitrofurantoin (BID) 100 MG CAPSULE PO SCH (09:45)
--- NOTE | 2017-02-24 09:50 | Discharge Summary ---
Date of Encounter: 02/24/17 Time of Encounter: 09:46 - Discharge Diagnosis (1) Syncope Priority: Primary Status: Acute Comments: Likely secondary to orthostatic hypotension and dehydration, possibly related also to UTI Qualifiers: Qualified Code(s): R55 - Syncope and collapse (2) Fracture of proximal phalanx of digit of right hand Priority: Secondary Status: Acute Comments: Proximal fracture nondisplaced of the proximal phalanx on the right fifth finger /traumatic Qualifiers: Encounter type: initial encounter Fracture type: closed Qualified Code(s) : S62.619A - Displaced fracture of proximal phalanx of unspecified finger, initial encounter for closed fracture (3) Accelerated hypertension Priority: Secondary Status: Acute (4) Diabetes Priority: Secondary Status: Chronic Qualifiers: Diabetes mellitus type: type 2 Diabetes mellitus complication status: without complication Diabetes mellitus shelter insulin use: without network security officer use Qualified Code(s): E11.9 - Type 2 diabetes mellitus without complications (5) Unwitnessed fall Priority: Secondary Status: Acute (6) Hyponatremia Priority: Secondary Status: Acute (7) Dehydration Priority: Primary Status: Acute - Discharge Medications Prescriptions: Clotrimazole Vag CRM [Gyne-Lotrimin Vag CRM] 1 appl VG BID 7 Days #1 cream HYDROcodone/Acet 5/325 mg [[place] 5-325 mg] 1 tab PO Q6H PRN #20 tablet PRN Reason: Moderate Pain (4-6) Nitrofurantoin (BID) [Macrobid] 100 mg PO BIDWM #14 capsule Home Medications: Aspirin Enteric Coated [Aspirin EC] 81 mg PO DAILY 01/27/15 [History] Cholecalciferol (Vitamin D3) [Vitamin D] 1,000 unit PO DAILY 01/27/15 [History] Docusate [Colace] 100 mg PO BID 01/27/15 [History] Simvastatin [Zocor] 20 mg PO QPM 01/27/15 [History] Doxepin HCl 150 mg PO HS 02/23/17 [History] Levothyroxine Sodium 50 mcg PO QAM 02/23/17 [History] Losartan Potassium [Cozaar] 100 mg PO DAILY 02/23/17 [History] Metoprolol XL (24 HR) Succ [Toprol Xl] 25 mg PO DAILY 02/23/17 [History] Omeprazole [PriLOSEC] 40 mg PO DAILY 02/23/17 [History] Polyethylene Glycol 3350 [MiraLAX bowel prep] 17 gm PO DAILY PRN 02/23/17 [ History] Clotrimazole Vag CRM [Gyne-Lotrimin Vag CRM] 1 appl VG BID 7 Days #1 cream 02/24 [Rx] HYDROcodone/Acet 5/325 mg [[place] 5-325 mg] 1 tab PO Q6H PRN #20 tablet 02/24/17 [Rx] Nitrofurantoin (BID) [Macrobid] 100 mg PO BIDWM #14 capsule 02/24/17 [Rx] Allergies/Adverse Reactions: 3 Allergy/AdvReac Type Severity Reaction Status Date / Time Oxycodone [From Percocet] AdvReac Rash Verified 10/28/16 13:26 Penicillins AdvReac Itching Verified 10/28/16 13:26 Sulfa (Sulfonamide AdvReac Vomiting Verified 10/28/16 13:26 Antibiotics) Procedures/tests Complete & Pending: Procedures Performed prior 72 hours Category Date Time Status EV carotid duplex imaging BI Routine Y 02/23/17 02:59 Completed EV echocardiogram Routine Y 02/23/17 02:59 Completed Date of admission: 02/23/17 01:42 Primary care physician: Kota Rubi MD Consults: 02/23/17 02:57 Consult to Occupational Therapy [CONS] Routine Comment: Evaluate, develop and implement POC Reason for Consult: physical deconditioning Consult to Physical Therapy [CONS] Routine Comment: Evaluate, develop and implement POC Reason for Consult: physical deconditioning 02/23/17 14:48 Consult to Orthopedic Surgery [CONS] Routine Consulting Provider: Daniel Frank Reason for Consult: 5th right proximal phalanx fracture Call Completed: Yes - Patient Status Disposition: Transfer SNF Condition: Good Overall status at discharge: patient is back to baseline - Discharge Instructions Follow Up With: Kota Rubi MD [Primary Care Provider] - Additional Instructions: Follow-up with primary care physician within the next 7 days. Fall precautions. Continue 7 days of nitrofurantoin. Maintain good hydration. Follow-up with orthopedic surgery within 1 week. - Diet and Activity Activity: increase activity as tolerated Diet: low fat, low cholesterol Hospital course: Ms. De Guzman is a 86 year old female with known PMH of HTN, HLD, who lives by herself, was brought to the emergency department by EMS after a fall at home. The fall was unwitnessed and she is unable to give a history wether she passed out or how the fall happened. She had a mild bruise over Rt side of forehead and a hematoma on th Rt hand medially. CT scan of the chest, abdomen pelvis, heada, C-spine and chest x-ray were unremarkable regarding fractures, the CT scan of the abdomen showed an infrarenal abdominal aortic aneurysm measuring 3.4 cm. X-ray of the right hand showed an acute nondisplaced fracture at the base of the proximal phalanx of the fifth finger. Orthopedic surgery was consulted and a splint was placed, needs follow-up in a week. Patient denied headache or chest pain or shortness of breath. She did complain of vaginal pain . Was treated with fluconazole for a yeast infection . ALso complained of dysuria, apparently she was started on ciprofloxacin on 02/15, the second urinalysis showed 15 white blood cells, culture has not grown anything. Will be started on nitrofurantoin. The patient's blood pressure while checking orthostatic vital signs dropped from a laying down position of 160/69, sitting up 137/71 and standing up 139/62 which shows a clear drop of more than 21 points on the systolic blood pressure, compatible with orthostatic hypotension possibly secondary to dehydration. The patient was given the option stay an additional day for monitoring but she prefers to be discharged to [facility] where she was already accepted. - Time Spent with Patient Total time spent providing and/or coordinating discharge services: Greater than 30 minutes (40 min) - Constitutional Vitals: Temp Pulse Resp BP Pulse Ox 98.2 F 73 18 183/68 95 02/24/17 07:15 02/24/17 07:15 02/24/17 07:15 02/24/17 07:15 02/24/17 07:15 General appearance: Present: A&O X 3, no acute distress, answers questions appropriately Exam: bruises over face and hematoma in right 5th finger, edematous. - Head Head exam: Present: atraumatic, normocephalic - Eye Eye exam: Present: PERRL, conjuntiva pink, sclera anicteric Pupils: Present: PERRL - Neck Neck exam general surgery: Present: supple, trachea midline. Absent: lymphadenopathy - Respiratory Respiratory exam: Present: CTAB. Absent: accessory muscle use, rales, rhonchi, wheezes - Cardiovascular Cardiovascular exam: Present: RRR, +S1, +S2. Absent: diastolic murmur, gallop, rubs, systolic murmur - GI/Abdominal GI/Abdominal exam: Present: normal bowel sounds, soft, no peritoneal signs. Absent: distended, tenderness - Extremities Exam Extremities exam: Present: warm, radial pulses palpable and symmetrical. Absent : calf tenderness, cyanotic, pedal edema - Neurological Exam Neurological exam: Present: CN II-XII intact, oriented X3, no focal deficits. Absent: pronater drift, facial droop, speech deficit - Skin Skin exam: Present: dry, intact
--- NOTE | 2017-02-24 10:01 | Physician Discharge Referral ---
[facility] Referral Info Provider in Charge after Transfer: PCP Institutional Level of Care: Skilled - Diagnosis (1) Syncope Status: Acute (2) Fracture of proximal phalanx of digit of right hand Status: Acute (3) Accelerated hypertension Status: Acute (4) Diabetes Status: Chronic (5) Unwitnessed fall Status: Acute (6) Hyponatremia Status: Acute (7) Dehydration Status: Acute - Transfer Medications Prescriptions: Clotrimazole Vag CRM [Gyne-Lotrimin Vag CRM] 1 appl VG BID 7 Days #1 cream HYDROcodone/Acet 5/325 mg [[place] 5-325 mg] 1 tab PO Q6H PRN #20 tablet PRN Reason: Moderate Pain (4-6) Nitrofurantoin (BID) [Macrobid] 100 mg PO BIDWM #14 capsule Home Medications: Aspirin Enteric Coated [Aspirin EC] 81 mg PO DAILY 01/27/15 [History] Cholecalciferol (Vitamin D3) [Vitamin D] 1,000 unit PO DAILY 01/27/15 [History] Docusate [Colace] 100 mg PO BID 01/27/15 [History] Simvastatin [Zocor] 20 mg PO QPM 01/27/15 [History] Doxepin HCl 150 mg PO HS 02/23/17 [History] Levothyroxine Sodium 50 mcg PO QAM 02/23/17 [History] Losartan Potassium [Cozaar] 100 mg PO DAILY 02/23/17 [History] Metoprolol XL (24 HR) Succ [Toprol Xl] 25 mg PO DAILY 02/23/17 [History] Omeprazole [PriLOSEC] 40 mg PO DAILY 02/23/17 [History] Polyethylene Glycol 3350 [MiraLAX bowel prep] 17 gm PO DAILY PRN 02/23/17 [ History] Clotrimazole Vag CRM [Gyne-Lotrimin Vag CRM] 1 appl VG BID 7 Days #1 cream 02/24 [Rx] HYDROcodone/Acet 5/325 mg [[place] 5-325 mg] 1 tab PO Q6H PRN #20 tablet 02/24/17 [Rx] Nitrofurantoin (BID) [Macrobid] 100 mg PO BIDWM #14 capsule 02/24/17 [Rx] Allergies/Adverse Reactions: 3 Allergy/AdvReac Type Severity Reaction Status Date / Time Oxycodone [From Percocet] AdvReac Rash Verified 10/28/16 13:26 Penicillins AdvReac Itching Verified 10/28/16 13:26 Sulfa (Sulfonamide AdvReac Vomiting Verified 10/28/16 13:26 Antibiotics) - Respiratory Orders Smoking Cessation: Smoking cessation has been advised. For more information, call the [place] Tobacco Quit Line at 9-026-GYCJ-NOW. - Advance Directives Code Status: Full Code - Rehabiliation Orders Rehab Orders: Evaluation for Physical Therapy Other: Follow-up with primary care physician within the next 7 days. Fall precautions. Continue 7 days of nitrofurantoin. Maintain good hydration. Follow-up with orthopedic surgery within 1 week. - Diet Orders No Added Salt (EMI) CERTIFICATION: I certify that the transfer of the above named patient to an Extended Care Facility is necessary for the continuing treatment of the diagnosis listed. The above information is true and accurate reflection of patient's current condition. Confidential - Redisclosure prohibited without a patient's written consent.
[2017-02-24 10:51] VITALS: BP 179/68
== END 2017-02-24 11:05 ==
LOC: 3NENU 22:06 → EMEROO 22:06 → SUATTDRO 02-23 01:42 → 2ANU 02-23 02:07
PROVIDERS: ADMIT Family Medicine; ATTEND Internal Medicine

== ENCOUNTER 2018-01-14 13:40 | Observation (INO) ==
[2018-01-14 15:23] LABS: Bilirubin,Urine Negative (Negative); Blood,Urine Small (Negative); Clarity,Urine Cloudy (Clear); Color,Urine Yellow (Yellow); Glucose,Urine (UA) Normal (Normal); Ketones,Urine Negative (Negative); Leukocyte Esterase,Urine Moderate (Negative); Nitrite,Urine Negative (Negative); Protein,Urine 30 mg/dL (Neg-Trace); Specific Gravity,Urine 1.005 (1.010-1.025); Urobilinogen,Urine Normal (Normal)
[2018-01-14 15:25] LABS: Bacteria,Urine Moderate per hpf (None-Few); Hyaline Casts,Urine None Seen per lpf (None-Few); Squamous Epithelial Cell,Urine None Seen per lpf (None-Few); WBC,Urine 30-50 per hpf (0-3)
[2018-01-14 16:01] LABS: Basophils % 0.5 %; Eosinophils # 0.1 K/mcL (0.0-0.6); Eosinophils % 1.7 %; Hematocrit 35.8 % (35.3-44.9); Hemoglobin 12.3 g/dL (11.5-15.4); Immature Granulocytes % 0.5 % (0-4); Lymphocytes # 1.4 K/mcL (0.6-4.6); Lymphocytes % 21.5 %; Mean Corpuscular HGB Conc 34.4 g/dL (31.6-35.5); Mean Corpuscular Hemoglobin 30.1 pg (28.0-33.3); Mean Corpuscular Volume 87.5 fL (83.0-100.0); Mean Platelet Volume 9.2 fL (9.4-12.4); Monocytes # 0.6 K/mcL (0.0-1.3); Monocytes % 8.9 %; Neutrophils # 4.3 K/mcL (1.6-8.9); Platelet Count 130 K/mcL (140-400); Red Blood Count 4.09 M/mcL (3.82-4.97); Red Cell Distribution Width 13.1 % (11.5-14.5); Segmented Neutrophils % 66.9 %
[2018-01-14 16:20] LABS: Alanine Aminotransferase 15 Units/L (7-52); Albumin/Globulin Ratio 1.5 (1.1-2.2); Alkaline Phosphatase 75 Units/L (34-104); Aspartate Amino Transferase 18 Units/L (13-39); BUN/Creatinine Ratio 15 (6-26); Bilirubin,Direct 0.1 mg/dL (0.0-0.2); Bilirubin,Indirect 0.3 mg/dL (0.0-1.2); Bilirubin,Total 0.4 mg/dL (0.3-1.0); Blood Urea Nitrogen 14 mg/dL (8-23); Calcium 9.3 mg/dL (8.6-10.3); Carbon Dioxide 28 mEq/L (23-29); Chloride 97 mEq/L (98-107); Globulin 2.6 g/dL (2.4-3.5); Glucose 126 mg/dL (70-105); Osmolality,Calculated 274 (280-300); Potassium 3.8 mEq/L (3.5-5.1); Sodium 131 mEq/L (136-145); Total Protein 6.6 g/dL (6.4-8.9); eGFR For Non-African Americans 59 (> 60)
[2018-01-14 16:22] LABS: Troponin I < 0.03 ng/mL (< 0.04)
--- NOTE | 2018-01-14 17:56 | Emergency Department Note ---
Disposition Clinical Impression: Vaginal pain, Elevated blood pressure reading Syncope Qualifiers: Syncope type: unspecified Qualified Code(s): R55 - Syncope and collapse Fall Qualifiers: Encounter type: initial encounter Qualified Code(s): W19.XXXA - Unspecified fall, initial encounter UTI (urinary tract infection) Qualifiers: Urinary tract infection type: site unspecified Hematuria presence: without hematuria Qualified Code(s): N39.0 - Urinary tract infection, site not specified Disposition: Admitted As Inpatient Condition: Fair General Adult HPI - General Chief complaint: ED Urogenital-Female Stated complaint: Inc Time Seen by Provider: 01/14/18 14:07 Source: patient, EMS Mode of arrival: EMS Limitations: no limitations Nursing Notes Reviewed: Yes Vital Signs Reviewed: Yes - History of Present Illness HPI Narrative: Patient is an 87-[facility] symptoms of been going on for more than a year and a half. Just complaining of vaginal pain, dryness and also increasing urgency and dysuria. She is denying any vaginal discharge. Patient also has bruising to her left face and admits to having a fall 2 weeks ago where she states she was standing up and she felt like she is going to fall and she just fell she was not weak at that time she did not think she was going to lose consciousness. She states she is able to get up after the fall and she was not seen or evaluated for this incident. She denies any focal neurological deficits at this time. Denies any fevers, chills , nausea, vomiting, chest pain, shortness of breath, flank pain. She admits to suprapubic pain and points right over her vaginal region. Denies any diarrhea. She lives at home by herself. Pain Scale: 8 - Related Data Home Medications Medication Instructions Recorded Confirmed Aspirin Enteric Coated [Aspirin EC] 81 mg PO DAILY 01/27/15 01/14/18 Cholecalciferol (Vitamin D3) 1,000 unit PO DAILY 01/27/15 01/14/18 [Vitamin D] Docusate [Colace] 100 mg PO BID 01/27/15 01/14/18 Simvastatin [Zocor] 20 mg PO QPM 01/27/15 01/14/18 Doxepin HCl 150 mg PO HS 02/23/17 01/14/18 Levothyroxine Sodium 50 mcg PO QAM 02/23/17 01/14/18 Losartan Potassium [Cozaar] 100 mg PO DAILY 02/23/17 01/14/18 Metoprolol XL (24 HR) Succ [Toprol 25 mg PO DAILY 02/23/17 01/14/18 Xl] Omeprazole [PriLOSEC] 40 mg PO DAILY 02/23/17 01/14/18 Polyethylene Glycol 3350 [MiraLAX 17 gm PO DAILY PRN 02/23/17 01/14/18 bowel prep] HYDROmorphone [Dilaudid] 2 mg PO Q8HR 01/14/18 01/14/18 Allergies Allergy/AdvReac Type Severity Reaction Status Date / Time Oxycodone [From Percocet] AdvReac Rash Verified 10/28/16 13:26 Penicillins AdvReac Itching Verified 10/28/16 13:26 Sulfa (Sulfonamide AdvReac Vomiting Verified 10/28/16 13:26 Antibiotics) All systems ED: reviewed and negative except as stated. Review of Systems: As Per HPI Past Medical History - Past Medical History Attestation: Yes The following information was validated with the patient. Medical history: Reports: CVA, diabetes, GERD, hyperlipidemia, hypertension, TIA , other Surgical history: Reports: cancer surgery, orthopedic, other, other, , appendectomy Psychiatric history: Reports: anxiety BOX ANNEALER history: Reports: no BOX ANNEALER history - Social History Smoking Status: Never smoker Smokeless Tobacco Status: No Alcohol use: Reports: none Drug use: Reports: none Physical Exam CONSTITUTIONAL: Alert and oriented X3, well-nourished, well appearing, in no apparent distress HEAD: Normocephalic; atraumatic. EYES: PERRL, no scleral icterus. NOSE: The nose is normal in appearance without rhinorrhea RESP: Normal chest excursion with respiration; breath sounds clear and equal bilaterally; no wheezes, rhonchi, or rales CARD: Regular rhythm, without murmurs, rub or gallop ABD: Non-distended; non-tender, soft,without rigidity, rebound or guarding SKIN: Normal for age and race; warm and dry; no apparent lesions NEUROLOGICAL: Patient is alert and oriented times three. Cranial nerves III- XII are intact. Sensory and motor functions are intact. Strength is 5/5 for flexion and extension in all 4 extremities. Patellar DTRS are equal and intact. Finger to nose testing is equal and normal bilaterally. - General Limitations: no limitations General appearance: alert Course Course Narrative: Discussed the patient plan at this time is to work her up for syncope which include evaluation of basic labs, troponin, EKG, chest x-ray. I do not think a head CT is warranted time given that the fall that she had occurred 2 weeks ago and she has no focal neurological deficits on exam. Patient's vaginal complaints. 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 - Reevaluation(s) Reevaluation #1: Patient's labs unremarkable except for a mild hyponatremia. Her urinalysis did show moderate bacteria and leukocyte esterase and given her urinary complaints we will treat her for urinary tract infection. Discussed with the patient the plan to bring her in the hospital. I discussed with the hospitalist on-call admitting the patient for UTI as well as fall and possible syncope. Discussed that the patient may be evaluated for placement given that she may not be safe at home given her recent fall. They agree to accept the patient. Vital Signs Temperature 98.9 F 01/14/18 13:42 Pulse Rate 98 01/14/18 13:42 Respiratory Rate 16 01/14/18 13:42 Blood Pressure 189/106 01/14/18 13:42 O2 Sat by Pulse Oximetry 100 01/14/18 13:42 Temperature 97.9 F 01/15/18 11:07 Pulse Rate 84 01/15/18 11:07 Respiratory Rate 16 01/15/18 11:07 Blood Pressure 175/76 01/15/18 11:07 O2 Sat by Pulse Oximetry 95 01/15/18 11:07 Oxygen Delivery Oxygen Delivery Room Air Medical Decision Making - Medical Records Medical records reviewed: Yes I reviewed the patient's medical records. - Lab Data Lab results reviewed: Yes I reviewed the patient's lab results. Result diagrams: 01/15/18 06:05 01/15/18 06:05 Lab Results 01/14/18 01/14/18 01/14/18 Range/Units 15:00 15:51 15:51 WBC 6.4 (4.3-11.1) K/mcL RBC 4.09 (3.82-4.97) M/mcL Hgb 12.3 (11.5-15.4) g/dL Hct 35.8 (35.3-44.9) % MCV 87.5 (83.0-100.0) fL MCH 30.1 (28.0-33.3) pg MCHC 34.4 (31.6-35.5) g/dL RDW 13.1 (11.5-14.5) % Plt Count 130 L (140-400) K/mcL MPV 9.2 L (9.4-12.4) fL Immature Gran % 0.5 (0-4) % Seg Neutrophils % 66.9 % Lymphocytes % 21.5 % Monocytes % 8.9 % Eosinophils % 1.7 % Basophils % 0.5 % Neutrophils # 4.3 (1.6-8.9) K/mcL Lymphocytes # 1.4 (0.6-4.6) K/mcL Monocytes # 0.6 (0.0-1.3) K/mcL Eosinophils # 0.1 (0.0-0.6) K/mcL Basophils # 0.0 (0.0-0.2) K/mcL Sodium 131 L (136-145) mEq/L Potassium 3.8 (3.5-5.1) mEq/L Chloride 97 L (98-107) mEq/L Carbon Dioxide 28 (23-29) mEq/L BUN 14 (8-23) mg/dL Creatinine 0.91 (0.60-1.20) mg/dL Est GFR ( Amer) > 60 (> 60) Est GFR (Non-Af Amer) 59 L (> 60) BUN/Creatinine Ratio 15 (6-26) Glucose 126 H (70-105) mg/dL Calculated Osmolality 274 L (280-300) Calcium 9.3 (8.6-10.3) mg/dL Total Bilirubin 0.4 (0.3-1.0) mg/dL Direct Bilirubin 0.1 (0.0-0.2) mg/dL Indirect Bilirubin 0.3 (0.0-1.2) mg/dL AST 18 (13-39) Units/L ALT 15 (7-52) Units/L Alkaline Phosphatase 75 (34-104) Units/L Troponin I (< 0.04) ng/mL Serum Total Protein 6.6 (6.4-8.9) g/dL Albumin 4.0 (3.5-5.7) g/dL Globulin 2.6 (2.4-3.5) g/dL Albumin/Globulin Ratio 1.5 (1.1-2.2) TSH (0.340-5.600) mcIU/mL Urine Color Yellow (Yellow) Urine Clarity Cloudy A (Clear) Urine pH 7.0 (5.0-8.0) pH Units Ur Specific [place] 1.005 L (1.010-1.025) Urine Protein 30 H (Neg-Trace) mg/dL Urine Glucose (UA) Normal (Normal) mg/dL Urine Ketones Negative (Negative) mg/dL Urine Blood Small H (Negative) Urine Nitrite Negative (Negative) Urine Bilirubin Negative (Negative) Urine Urobilinogen Normal (Normal) mg/dL Ur Leukocyte Esterase Moderate H (Negative) Urine Microscopic RBC 3-5 H (0-3) per hpf Urine Microscopic WBC 30-50 H (0-3) per hpf Ur Squamous Epith Cells None Seen (None-Few) per lpf Urine Bacteria Moderate H (None-Few) per hpf Hyaline Casts None Seen (None-Few) per lpf 01/14/18 Range/Units 15:51 WBC (4.3-11.1) K/mcL RBC (3.82-4.97) M/mcL Hgb (11.5-15.4) g/dL Hct (35.3-44.9) % MCV (83.0-100.0) fL MCH (28.0-33.3) pg MCHC (31.6-35.5) g/dL RDW (11.5-14.5) % Plt Count (140-400) K/mcL MPV (9.4-12.4) fL Immature Gran % (0-4) % Seg Neutrophils % % Lymphocytes % % Monocytes % % Eosinophils % % Basophils % % Neutrophils # (1.6-8.9) K/mcL Lymphocytes # (0.6-4.6) K/mcL Monocytes # (0.0-1.3) K/mcL Eosinophils # (0.0-0.6) K/mcL Basophils # (0.0-0.2) K/mcL Sodium (136-145) mEq/L Potassium (3.5-5.1) mEq/L Chloride (98-107) mEq/L Carbon Dioxide (23-29) mEq/L BUN (8-23) mg/dL Creatinine (0.60-1.20) mg/dL Est GFR ( Amer) (> 60) Est GFR (Non-Af Amer) (> 60) BUN/Creatinine Ratio (6-26) Glucose (70-105) mg/dL Calculated Osmolality (280-300) Calcium (8.6-10.3) mg/dL Total Bilirubin (0.3-1.0) mg/dL Direct Bilirubin (0.0-0.2) mg/dL Indirect Bilirubin (0.0-1.2) mg/dL AST (13-39) Units/L ALT (7-52) Units/L Alkaline Phosphatase (34-104) Units/L Troponin I < 0.03 (< 0.04) ng/mL Serum Total Protein (6.4-8.9) g/dL Albumin (3.5-5.7) g/dL Globulin (2.4-3.5) g/dL Albumin/Globulin Ratio (1.1-2.2) TSH 1.520 (0.340-5.600) mcIU/mL Urine Color (Yellow) Urine Clarity (Clear) Urine pH (5.0-8.0) pH Units Ur Specific [place] (1.010-1.025) Urine Protein (Neg-Trace) mg/dL Urine Glucose (UA) (Normal) mg/dL Urine Ketones (Negative) mg/dL Urine Blood (Negative) Urine Nitrite (Negative) Urine Bilirubin (Negative) Urine Urobilinogen (Normal) mg/dL Ur Leukocyte Esterase (Negative) Urine Microscopic RBC (0-3) per hpf Urine Microscopic WBC (0-3) per hpf Ur Squamous Epith Cells (None-Few) per lpf Urine Bacteria (None-Few) per hpf Hyaline Casts (None-Few) per lpf - Radiology Data Radiology results reviewed: Yes I reviewed the patient's radiology results. Chest X-Ray 01/14/18 15:28 IMPRESSION: No acute cardiopulmonary process. D/ / Alexander Norman / Alexander Norman Interpreting Provider: Alexander Norman - EKG Data EKG #1 EKG attestation: Yes I reviewed and interpreted this EKG. EKG results narrative: EKG done at 16:01 shows sinus rhythm at a rate of 84 bpm. Normal axis. No signs of ST elevation, ST depression or Q waves present. No signs of ischemia. Attestation Statement - Attestation Attestation: I examined this patient and my medical decision-making was reviewed with the Resident Physician, Dr. Amos. I agree with the documented findings, disposition and treatment plan as described except to the extent set forth below. Pt is a 87 yo wf with multiple complaints. Pt with recurrent syncope last night at home, lives alone and reports frequent falls, with/without syncope. Pt with old ecchymosis to L face, but denies any pain. No blood thinners. Pt worried about UTI, and uterine prolapse, for which she has been seen by OB. No CP, SOB, no other c/o's. I agree with PE findings as documented. Elev BP. Workup unremarkable. Sodium wnl, issue in past. Will admit for eval of syncope and frequent falls, UTI. SS consult indicated. D/W hospitalist, accepted for further eval.
[2018-01-14] MEDS ORDERED: cefTRIAXone 1,000 MG in Water for inj. (sterile) 20 ML 10 ML IVP SCH (18:00)
[2018-01-14] MEDS ORDERED: Naloxone 0.4 MG/ML INJ IVP PRN (22:10)
[2018-01-14] MEDS ORDERED: Calamine/Zinc oxide Lotion 120 ML BOTTLE TP PRN (22:28)
--- NOTE | 2018-01-14 22:44 | Internal Med History&Physical ---
Date of Encounter: 01/15/18 Time of Encounter: 21:25 Internal Medicine - H&P: HPI Chief complaint: UTI, cellulitis Admitted From: Emergency Dept Plans for Post Hospital Care: Home History of present illness: Ms. De Guzman is a 87 year old female Patient presented for dysuria and swelling in her vaginal area that has persisted for over a year. She states that she has seen 4 different doctors for it, and each of them have had different treatment ideas but nothing has worked. She says now the pain in her vaginal area is increasing and so she came to the hospital for further evaluation. She also has had several falls at home, including one 2 weeks ago that resulted in her hitting her head and left arm. She did not seek medical attention at that time because she states that she felt fine afterwards and was able to get back up on her feet. She lives alone, but her daughter lives close by. In the ER urinalysis was positive for moderate leukocyte esterase and bacteria. Negative for nitrites and small blood. A wet prep was ordered but not preformed. Chest x-ray was negative for acute processes. Here remaining labs were within normal limits. Upon my assessment Patient's blood pressure is elevated, she has severe vaginal pain and she is in tears. She denies fever, chest pain, nausea, vomiting, diarrhea and abdominal pain. She has had constipation and dysuria and severe vaginal pain. Past Med Surg Social Fam HX - Past Medical History Medical history: CVA, diabetes, GERD, hyperlipidemia, hypertension, TIA, other Additional medical history: UTI, PANCREATITIS Psychiatric history: anxiety - Past Surgical History Surgical History: cancer surgery, orthopedic, other, other, , appendectomy Additional surgical history: Left upper arm ORIF - Social History Smoking Status: Never smoker Smokeless Tobacco Status: No Alcohol use: none Drug use: none - Family History Father Adopted: No Family Member Ethnicity: Non- Living Status: Hx Family Cardiac Disorders: No Hx Family Respiratory Disorders: No Hx Family GI Disorders: No Hx Family Endocrine Disorder: No Mother Adopted: No Family Member Ethnicity: Non- Living Status: Hx Family Cardiac Disorders: No Hx Family Respiratory Disorders: No Hx Family Cancer: Yes Hx Family GI Disorders: No Hx Family Endocrine Disorder: No Hx Family Neuromuscular Disorders: No Hx Family Neurologic Disorders: No Hx Family HEENT Disorders: No Hx Family Autoimmune Disorders: No Internal Medicine - H&P: Meds Aspirin Enteric Coated [Aspirin EC] 81 mg PO DAILY 01/27/15 [History] Cholecalciferol (Vitamin D3) [Vitamin D] 1,000 unit PO DAILY 01/27/15 [History] Docusate [Colace] 100 mg PO BID 01/27/15 [History] Simvastatin [Zocor] 20 mg PO QPM 01/27/15 [History] Doxepin HCl 150 mg PO HS 02/23/17 [History] Levothyroxine Sodium 50 mcg PO QAM 02/23/17 [History] Losartan Potassium [Cozaar] 100 mg PO DAILY 02/23/17 [History] Metoprolol XL (24 HR) Succ [Toprol Xl] 25 mg PO DAILY 02/23/17 [History] Omeprazole [PriLOSEC] 40 mg PO DAILY 02/23/17 [History] Polyethylene Glycol 3350 [MiraLAX bowel prep] 17 gm PO DAILY PRN 02/23/17 [ History] HYDROmorphone [Dilaudid] 2 mg PO Q8HR 01/14/18 [History] 3 Allergy/AdvReac Type Severity Reaction Status Date / Time Oxycodone [From Percocet] AdvReac Rash Verified 10/28/16 13:26 Penicillins AdvReac Itching Verified 10/28/16 13:26 Sulfa (Sulfonamide AdvReac Vomiting Verified 10/28/16 13:26 Antibiotics) All Systems PM: A 10-system review of systems was performed and is negative for pertinent findings except as documented above in the HPI. - Constitutional Vitals: Temp Pulse Resp BP Pulse Ox 97.6 F 92 15 226/117 98 01/14/18 20:27 01/14/18 20:27 01/14/18 20:27 01/14/18 20:27 01/14/18 20:27 General appearance: Present: cooperative, A&O X 3, answers questions appropriately Exam: moderate distress due to vaginal pain - Head Additional comments: Left sided bruise to face, tenderness over check bone. Full range of motion of jaw - Eye Eye exam: Present: EOMI, normal appearance - Respiratory Respiratory exam: Present: CTAB. Absent: chest wall tenderness, wheezes - Cardiovascular Cardiovascular exam: Present: RRR. Absent: diastolic murmur, systolic murmur - GI/Abdominal GI/Abdominal exam: Present: normal bowel sounds, soft. Absent: tenderness - External exam: Present: swelling Additional comments: Vaginal exam performed with nurse present. Erythema of both labia majora, tenderness to palpation. Swelling bilaterally of the labia majora - Extremities Exam Extremities exam: Present: tenderness. Absent: pedal edema, warm, radial pulses palpable and symmetrical - Neurological Exam Neurological exam: Present: no focal deficits, strengths equal and symetr throughout. Absent: motor sensory deficit, facial droop, speech deficit - Skin Skin exam: Present: dry, erythema, intact, warm Additional comments: Labia majora erythema as above Internal Med - H&P Results - Labs CBC & Chem 7: 01/15/18 06:05 01/14/18 15:51 - Assessment and plan (1) Vaginal pain Current Visit: Yes Status: Acute Assessment and plan: Erythematous and tender on exam. Apparently has been going on for over a year. Could be a cellulitis of the labia majora based on appearance. Unable to assess further due to pain Start vancomycin and clindamycin as patient has allergy to penicillins. OBGYN consult today Pyridium for dysuria Topical calamine lotion for itching (2) UTI (urinary tract infection) Current Visit: Yes Status: Acute Assessment and plan: Patient's UA was positive for moderate leukocyte esterase, moderate bacteria and small blood. Negative nitrite. Continue Ceftriaxone 1g daily Urine culture pending. Follow up additional UA to ensure resolution of hematuria Qualifiers: Urinary tract infection type: site unspecified Hematuria presence: without hematuria Qualified Code(s): N39.0 - Urinary tract infection, site not specified (3) Fall Current Visit: Yes Status: Acute Assessment and plan: Patient has had falls at home, 2 weeks ago hit her head. PT/OT consult for gait evaluation. Qualifiers: Encounter type: initial encounter Qualified Code(s): W19.XXXA - Unspecified fall, initial encounter (4) Hypertensive urgency Current Visit: Yes Status: Acute Assessment and plan: Patient's blood pressure elevated upon arrival to the floor. Likely exacerbated by pain IV hydralazine 10mg Q6H PRN for pressures greater than 160 10mg Labetalol Continue to monitor Continue home meds. - Time Spent With Patient Total time spent is greater than 50% in coordination of care (as documented) at patient's floor/unit and/or counseling patient: Greater than 35 minutes
[2018-01-14] MEDS: *HR* HYDROmorphone 2 MG TABLET PO SCH (22:56)
[2018-01-14] MEDS: Clindamycin 600 MG/50 ML 600 MG/50 ML IV.SOLN IVPB SCH (22:59)
[2018-01-15] MEDS ORDERED: *HR* Labetalol 20 MG/4 ML SYRINGE IVP ONE (00:16)
[2018-01-15] MEDS: *HR* HYDROmorphone 2 MG TABLET PO SCH ×3 (05:59→22:53)
[2018-01-15 06:49] LABS: Hematocrit 36.7 % (35.3-44.9); Hemoglobin 12.5 g/dL (11.5-15.4); Mean Corpuscular HGB Conc 34.1 g/dL (31.6-35.5); Mean Corpuscular Hemoglobin 29.2 pg (28.0-33.3); Mean Corpuscular Volume 85.7 fL (83.0-100.0); Mean Platelet Volume 9.7 fL (9.4-12.4); Platelet Count 168 K/mcL (140-400); Red Blood Count 4.28 M/mcL (3.82-4.97); Red Cell Distribution Width 13.3 % (11.5-14.5)
[2018-01-15 07:03] LABS: BUN/Creatinine Ratio 13 (6-26); Blood Urea Nitrogen 12 mg/dL (8-23); Calcium 9.6 mg/dL (8.6-10.3); Carbon Dioxide 26 mEq/L (23-29); Chloride 98 mEq/L (98-107); Glucose 134 mg/dL (70-105); Osmolality,Calculated 282 (280-300); Potassium 3.6 mEq/L (3.5-5.1); Sodium 135 mEq/L (136-145); eGFR For Non-African Americans 55 (> 60)
[2018-01-15] MEDS: Clindamycin 600 MG/50 ML 600 MG/50 ML IV.SOLN IVPB SCH (08:59)
[2018-01-15] MEDS: Metoprolol XL (24 HR) Succ 25 MG TAB.ER.24H PO SCH (09:06)
[2018-01-15] MEDS: Aspirin Enteric Coated 81 MG Tablet PO SCH (09:07)
[2018-01-15] MEDS: cefTRIAXone 1,000 MG in Water for inj. (sterile) 20 ML 10 ML IVP SCH (09:07)
[2018-01-15] MEDS ORDERED: Acetaminophen 325 MG TABLET PO PRN (12:24)
--- NOTE | 2018-01-15 14:35 | Internal Med Progress Note ---
Hospitalist Progress Note - Encounter Date of Encounter: 01/15/18 Time of Encounter: 11:00 - Subjective Interval History: west complains of vaginal swelling and pain for the past 1 year. she also complains of dysuria that has improved somewhat since admission dnies fever, chills, N/V/D, cp, SOB, palpitations is tolerating PO diet - Exam Vitals: Temp Pulse Resp BP Pulse Ox 97.9 F 84 16 175/76 95 01/15/18 11:07 01/15/18 11:01/15/18 11:01/15/18 11:01/15/18 11:07 Exam: General: Patient is alert, oriented, no acute distress, Head: atraumatic, normocephalic, Eye: normal appearance, PERRL, no scleral icterus, no conjunctival injection ENT: mucous membranes moist, normal external ear exam Neck: normal inspection, trachea midline, full ROM, no carotid bruits Chest: normal inspection, symmetric chest rise Respiratory: Good respiratory effort. Bilateral breath sounds are clear without wheezing, crackles, or rhonchi. Cardiovascular: Regular rate and rhythm. s1 and s2 No clicks, rubs, gallops, or murmors. Abdomen: Bowel sounds present normoactive x-4 quadrants. Abdomen is soft, nondistended. no Epigastric tenderness. No guarding or rebound. No organomegaly noted, obese musculoskeletal: Spontaneously moving all extremities. no edema, no calf tenderness Skin: warm, dry, intact. Neuro: Alert and oriented x4. Sensation light touch intact. Cranial nerves 2- 12 is intact. no focal deficit LINE RIDER: bilateral swelling of labia major and is tender and erythamtous, no ulcers seen Psych: Patient's affect is normal - Assessment and Plan (1) Vaginal pain Current Visit: Yes Status: Acute Assessment and Plan: chronically erythamatous and swollen ( about 1.5 years) denies trauma ? cellulitis will continue vancomycin ad ceftriaxone OBGYN consulted will follow recoomendations Pyridium for dysuria Topical calamine lotion for itching pain control with dilaudid PO (2) Hypertensive urgency Current Visit: Yes Status: Acute Assessment and Plan: BP controlled now is restarted on Home medications hydralazine IVP PRN for HTN (3) UTI (urinary tract infection) Current Visit: Yes Status: Acute Assessment and Plan: on ceftriaxone will follow urine cx (4) DVT prophylaxis Current Visit: Yes Status: Acute Assessment and Plan: heparin SC - Time Spent with Patient Total time spent is greater than 50% in coordination of care (as documented) at patient's floor/unit and/or counseling patient: Internal Medicine: Result - Labs CBC & Chem 7: 01/15/18 06:05 01/15/18 06:05 Labs: Short CBC 01/15/18 Range/Units 06:05 WBC 8.1 (4.3-11.1) K/mcL Hgb 12.5 (11.5-15.4) g/dL Hct 36.7 (35.3-44.9) % Plt Count 168 (140-400) K/mcL BMP 01/15/18 06:05 Sodium 135 L Potassium 3.6 Chloride 98 Carbon Dioxide 26 BUN 12 Creatinine 0.96 Glucose 134 H Calcium 9.6 - VTE Documentation of Mechanical Device: Intermittent pneumatic compression device Consult Discharge Plan - Plan Referrals: Kota Rubi MD [Primary Care Provider] - (3) UTI (urinary tract infection) Qualifiers: Urinary tract infection type: site unspecified Hematuria presence: without hematuria Qualified Code(s): N39.0 - Urinary tract infection, site not specified
[2018-01-15] MEDS ORDERED: MOM Conc 10 ML UD.LIQ PO ONE (17:40)
[2018-01-15] MEDS: *HR* Heparin 5,000 UNIT/ML VIAL SQ SCH (21:29)
--- NOTE | 2018-01-15 23:01 | OB/GYN Consult Note ---
Date of Encounter: 01/15/18 Time of Encounter: 22:54 Assessment and Plan (1) Vaginal pain Current Visit: Yes Status: Acute Pt with long h/o intense vaginal pain and irritation with prior neg w/u and ineffective treatments thus far. She is now on IV ATB's for tx of possible cellulitis and she states througout the day today her sx's have become much improved with less tenderness, swelling and can now void without difficulty. She was actually able to allow me to palpate the labia this evening which has previously been impossible secondary to pain. There are no malignant lesions noted. At this point would cont. atb's, she will likely be able to be d/c'd home on oral atb's. Could consider antihistamine or Vistaril to help with sx's , though great caution would need to be used given pts age. Pt can f/ as out patient in a week or so. She has previously seen Dr. Acosta. History of Present Illness Consult date: 01/15/18 Reason for consult: other (vulvar swelling and pain) Chief complaint: Intense vulvar swelling and pain History of present illness: Pt is an 87 yo female presents to hospital with worsening intense vulvar irriation and pain. She has seen Dr. Acosta in the past and has had extensive treatment and workup with multiple negative cx's for the typical vaginal pathogens. She has been tx'd with atb's and topical steroids without help for what has consistently been described as intense pruritis. Recently she has failed to f/u for recent ER office vists for ER f/u. Pt reports that she has become frustrated with past tx attempts that have failed. She describes intense vulvar pain with minimal d/c. She c/o dysuria but no urinary frequency or hesitancy. She denies bowel c/o. She denies new topical exposures. She denies bleeding. Past Med Surg Social Fam HX - Past Medical History Source: patient, old records reviewed Medical history: CVA, diabetes, GERD, hyperlipidemia, hypertension, TIA, other Additional medical history: UTI, PANCREATITIS Psychiatric history: anxiety - Past Surgical History Surgical History: cancer surgery, orthopedic, other, other, , appendectomy Additional surgical history: Left upper arm ORIF - Social History Smoking Status: Never smoker Smokeless Tobacco Status: No Alcohol use: none Drug use: none - Family History Father Adopted: No Family Member Ethnicity: Non- Living Status: Hx Family Cardiac Disorders: No Hx Family Respiratory Disorders: No Hx Family GI Disorders: No Hx Family Endocrine Disorder: No Mother Adopted: No Family Member Ethnicity: Non- Living Status: Hx Family Cardiac Disorders: No Hx Family Respiratory Disorders: No Hx Family Cancer: Yes Hx Family GI Disorders: No Hx Family Endocrine Disorder: No Hx Family Neuromuscular Disorders: No Hx Family Neurologic Disorders: No Hx Family HEENT Disorders: No Hx Family Autoimmune Disorders: No Medications and Allergies Aspirin Enteric Coated [Aspirin EC] 81 mg PO DAILY 01/27/15 [History] Cholecalciferol (Vitamin D3) [Vitamin D] 1,000 unit PO DAILY 01/27/15 [History] Docusate [Colace] 100 mg PO BID 01/27/15 [History] Simvastatin [Zocor] 20 mg PO QPM 01/27/15 [History] Doxepin HCl 150 mg PO HS 02/23/17 [History] Levothyroxine Sodium 50 mcg PO QAM 02/23/17 [History] Losartan Potassium [Cozaar] 100 mg PO DAILY 02/23/17 [History] Metoprolol XL (24 HR) Succ [Toprol Xl] 25 mg PO DAILY 02/23/17 [History] Omeprazole [PriLOSEC] 40 mg PO DAILY 02/23/17 [History] Polyethylene Glycol 3350 [MiraLAX bowel prep] 17 gm PO DAILY PRN 02/23/17 [ History] HYDROmorphone [Dilaudid] 2 mg PO Q8HR 01/14/18 [History] 3 Allergy/AdvReac Type Severity Reaction Status Date / Time Oxycodone [From Percocet] AdvReac Rash Verified 10/28/16 13:26 Penicillins AdvReac Itching Verified 10/28/16 13:26 Sulfa (Sulfonamide AdvReac Vomiting Verified 10/28/16 13:26 Antibiotics) Exam - Vital Signs Vital signs: Initial Vital Signs Temp Pulse Resp BP Pulse Ox 98.9 F 98 16 189/106 100 01/14/18 13:42 01/14/18 13:42 01/14/18 13:42 01/14/18 13:42 01/14/18 13:42 - Constitutional Constitutional: well developed, mild distress - HEENT HEENT: EOMI, PERRL - Neck Neck exam: full ROM - Lungs Respiratory exam: CTAB - Cardiovascular Cardiovascular exam: RRR - Abdomen Abdomen: Present: bowel sounds normal - Vulva Vulva: bilateral: atrophy - Vagina Vagina: Present: atrophic mucosa - Comments Comments: Pt with redness and mild firmness over exteral labia majora at dependent portions. There is no evidence of abcess or mass within deep tissue. The skin maintains typical normal skin folds. Results Result Diagrams: 01/15/18 06:05 01/15/18 06:05 Abnormal lab results Sodium 135 mEq/L (136-145) L 01/15/18 06:05 Est GFR (Non-Af Amer) 55 (> 60) L 01/15/18 06:05 Glucose 134 mg/dL (70-105) H 01/15/18 06:05 Urine Clarity Cloudy (Clear) A 01/14/18 15:00 Ur Specific [place] 1.005 (1.010-1.025) L 01/14/18 15:00 Urine Protein 30 mg/dL (Neg-Trace) H 01/14/18 15:00 Urine Blood Small (Negative) H 01/14/18 15:00 Ur Leukocyte Esterase Moderate (Negative) H 01/14/18 15:00 Urine Microscopic RBC 3-5 per hpf (0-3) H 01/14/18 15:00 Urine Microscopic WBC 30-50 per hpf (0-3) H 01/14/18 15:00 Urine Bacteria Moderate per hpf (None-Few) H 01/14/18 15:00 All other labs normal. Consult Discharge Plan - Plan Referrals: Kota Rubi MD [Primary Care Provider] -
[2018-01-16] MEDS: *HR* Heparin 5,000 UNIT/ML VIAL SQ SCH ×2 (05:26→15:24)
[2018-01-16] MEDS: *HR* HYDROmorphone 2 MG TABLET PO SCH (06:58)
[2018-01-16 07:45] LABS: Hematocrit 34.6 % (35.3-44.9); Hemoglobin 11.8 g/dL (11.5-15.4); Mean Corpuscular HGB Conc 34.1 g/dL (31.6-35.5); Mean Corpuscular Hemoglobin 30.2 pg (28.0-33.3); Mean Corpuscular Volume 88.5 fL (83.0-100.0); Mean Platelet Volume 9.8 fL (9.4-12.4); Platelet Count 149 K/mcL (140-400); Red Blood Count 3.91 M/mcL (3.82-4.97); Red Cell Distribution Width 13.8 % (11.5-14.5)
[2018-01-16 07:57] VITALS: BP 135/66
[2018-01-16 08:01] LABS: Estimated Average Glucose 128 mg/dl; Hemoglobin A1C 6.1 %
[2018-01-16 08:09] LABS: BUN/Creatinine Ratio 14 (6-26); Blood Urea Nitrogen 14 mg/dL (8-23); Carbon Dioxide 26 mEq/L (23-29); Chloride 101 mEq/L (98-107); Glucose 128 mg/dL (70-105); Osmolality,Calculated 282 (280-300); Potassium 3.8 mEq/L (3.5-5.1); Sodium 135 mEq/L (136-145); eGFR For Non-African Americans 51 (> 60)
[2018-01-16] MEDS: Aspirin Enteric Coated 81 MG Tablet PO SCH (08:49)
[2018-01-16] MEDS: cefTRIAXone 1,000 MG in Water for inj. (sterile) 20 ML 10 ML IVP SCH (08:50)
[2018-01-16] MEDS: Metoprolol XL (24 HR) Succ 25 MG TAB.ER.24H PO SCH (08:50)
--- NOTE | 2018-01-16 12:19 | Physician Discharge Referral ---
Home Health/Hosp Referral Info Transfer to: Home Health - Diagnosis (1) Vaginal pain Priority: Primary Status: Acute (2) Hypertensive urgency Priority: Secondary Status: Acute (3) UTI (urinary tract infection) Priority: Secondary Status: Acute (4) DVT prophylaxis Priority: Secondary Status: Acute - Respiratory Orders Smoking Cessation: Smoking cessation has been advised. For more information, call the [place] Tobacco Quit Line at 0-154-WNWC-NOW. - Activity Activity Orders: Ambulate - Services Needed Following services are medically necessary services: Home Health Aide - Transfer Medications Home Medications: Aspirin Enteric Coated [Aspirin EC] 81 mg PO DAILY 01/27/15 [History] Cholecalciferol (Vitamin D3) [Vitamin D] 1,000 unit PO DAILY 01/27/15 [History] Docusate [Colace] 100 mg PO BID 01/27/15 [History] Simvastatin [Zocor] 20 mg PO QPM 01/27/15 [History] Doxepin HCl 150 mg PO HS 02/23/17 [History] Levothyroxine Sodium 50 mcg PO QAM 02/23/17 [History] Losartan Potassium [Cozaar] 100 mg PO DAILY 02/23/17 [History] Metoprolol XL (24 HR) Succ [Toprol Xl] 25 mg PO DAILY 02/23/17 [History] Omeprazole [PriLOSEC] 40 mg PO DAILY 02/23/17 [History] Polyethylene Glycol 3350 [MiraLAX bowel prep] 17 gm PO DAILY PRN 02/23/17 [ History] HYDROmorphone [Dilaudid] 2 mg PO Q8HR 01/14/18 [History] Allergies/Adverse Reactions: 3 Allergy/AdvReac Type Severity Reaction Status Date / Time Oxycodone [From Percocet] AdvReac Rash Verified 10/28/16 13:26 Penicillins AdvReac Itching Verified 10/28/16 13:26 Sulfa (Sulfonamide AdvReac Vomiting Verified 10/28/16 13:26 Antibiotics) Certification: Further, I certify that my clinical findings support that this patient is homebound (i.e. absences from home require considerable and taxing effort and are for medical reasons or quaker services or infrequently or short duration when for other reasons) because: Homebound Reason: Patient requires assistance of a person or device to safely leave home Attestation: My signature below is to certify that this patient is under my care and that I, or nurse practitioner, or a physician's mobile unit assistant working with me, has a face-to -face encounter with this patient.
--- NOTE | 2018-01-16 12:58 | Discharge Summary ---
- NOTES TO OUTPATIENT PROVIDER Notes to Outpatient Provider: follow up with OBGYN clinic. follow up with PCP Orders not resulted at time of discharge: Pending orders 01/16/18 22:00 Vancomycin,Trough Timed Date of Encounter: 01/16/18 Time of Encounter: 12:48 - Discharge Diagnosis (1) Vaginal pain Priority: Primary Status: Acute (2) Hypertensive urgency Priority: Secondary Status: Acute (3) UTI (urinary tract infection) Priority: Secondary Status: Acute Qualifiers: Urinary tract infection type: acute cystitis Hematuria presence: without hematuria Qualified Code(s): N30.00 - Acute cystitis without hematuria (4) DVT prophylaxis Priority: Secondary Status: Acute (5) Prediabetes Priority: Secondary Status: Acute Assessment and Plan: A1c 6.1 Hospital course: Ms. De Guzman is a 87 year old female with history of CVA, diabetes, GERD, hyperlipidemia, hypertension, TIA presenetd [facility] with complaint of dysuria adn vaginal pain. as per patiet her dysuria is progresively worsening and her vaginal pain became unbearable so she decided to come to the ED. In the Ed her UA was positive for UTI and she was started on IV Abx she reported that shehas had vaginal pain for almost 1.5 years which is progressively worsening. she has seen 4 different doctors for it, and each of them have had different treatment ideas but nothing has worked. she was started on IV abx for cellulitis of labia majora. with improvement of her Symptoms OBGYN was consulted and as her symptoms it was agreed to send her home on PO Abx. she was told that she is prediabetic with A1c of 6.1. she was counseled on diet and nutrition. to follow up with PCP for prediabetes management she was to have an appointment made By PIR for follow up with OBGYN Discharge discussed with: patient, case management - Time Spent with Patient Total time spent providing and/or coordinating discharge services: Less than 30 minutes - Discharge Medications Prescriptions: Calamine/Zinc oxide Lotion [Caladryl Lotion] 1 appl TP TID PRN 10 Days #1 bottle PRN Reason: Itching cephALEXin [Keflex] 500 mg PO BID 9 Days #18 capsule Doxycycline 100 mg PO BID 9 Days #18 capsule Home Medications: Aspirin Enteric Coated [Aspirin EC] 81 mg PO DAILY 01/27/15 [History] Cholecalciferol (Vitamin D3) [Vitamin D] 1,000 unit PO DAILY 01/27/15 [History] Docusate [Colace] 100 mg PO BID 01/27/15 [History] Simvastatin [Zocor] 20 mg PO QPM 01/27/15 [History] Doxepin HCl 150 mg PO HS 02/23/17 [History] Levothyroxine Sodium 50 mcg PO QAM 02/23/17 [History] Losartan Potassium [Cozaar] 100 mg PO DAILY 02/23/17 [History] Metoprolol XL (24 HR) Succ [Toprol Xl] 25 mg PO DAILY 02/23/17 [History] Omeprazole [PriLOSEC] 40 mg PO DAILY 02/23/17 [History] Polyethylene Glycol 3350 [MiraLAX bowel prep] 17 gm PO DAILY PRN 02/23/17 [ History] HYDROmorphone [Dilaudid] 2 mg PO Q8HR 01/14/18 [History] Calamine/Zinc oxide Lotion [Caladryl Lotion] 1 appl TP TID PRN 10 Days #1 bottle 01/16/18 [Rx] Doxycycline 100 mg PO BID 9 Days #18 capsule 01/16/18 [Rx] cephALEXin [Keflex] 500 mg PO BID 9 Days #18 capsule 01/16/18 [Rx] Allergies/Adverse Reactions: 3 Allergy/AdvReac Type Severity Reaction Status Date / Time Oxycodone [From Percocet] AdvReac Rash Verified 10/28/16 13:26 Penicillins AdvReac Itching Verified 10/28/16 13:26 Sulfa (Sulfonamide AdvReac Vomiting Verified 10/28/16 13:26 Antibiotics) Date of admission: 01/14/18 19:04 Primary care physician: Kota Rubi MD Consults: 01/15/18 00:17 Consult to [employer] OFFICER [CONS] Routine Consulting Provider: WOOD CUTTER Bhavya Reason for Consult: Vaginal swelling and pain Call Completed: No 01/15/18 00:45 PT [Consult to Physical Therapy] [CONS] Routine Comment: Evaluate, develop and implement POC Reason for Consult: Patient has had falls at home, uses a walker but still falls. Does patient have active BEDREST order?: No Is patient medically & hemodynamically stable?: Yes 01/15/18 00:46 Consult to Occupational Therapy [CONS] Routine Comment: Evaluate, develop and implement POC Reason for Consult: Patient has had falls at home, uses a walker. Recent fall 2 weeks ago resulting in bruise on face Does patient have active BEDREST order?: No Is patient medically & hemodynamically stable?: Yes - Constitutional Vitals: Temp Pulse Resp BP Pulse Ox 98.1 F 86 16 135/66 92 01/16/18 07:54 01/16/18 07:54 01/16/18 07:54 01/16/18 07:54 01/16/18 07:54 General appearance: Present: cooperative, A&O X 3, answers questions appropriately Exam: General: Patient is alert, oriented, no acute distress, Head: atraumatic, normocephalic, Eye: normal appearance, PERRL, no scleral icterus, no conjunctival injection ENT: mucous membranes moist, normal external ear exam Neck: normal inspection, trachea midline, full ROM, no carotid bruits Chest: normal inspection, symmetric chest rise Respiratory: Good respiratory effort. Bilateral breath sounds are clear without wheezing, crackles, or rhonchi. Cardiovascular: Regular rate and rhythm. s1 and s2 No clicks, rubs, gallops, or murmors. Abdomen: Bowel sounds present normoactive x-4 quadrants. Abdomen is soft, nondistended. no Epigastric tenderness. No guarding or rebound. No organomegaly noted, obese musculoskeletal: Spontaneously moving all extremities. no edema, no calf tenderness Skin: warm, dry, intact. Neuro: Alert and oriented x4. Sensation light touch intact. Cranial nerves 2- 12 is intact. no focal deficit [employer]AGE WORKER: Pt with redness and mild firmness over exteral labia majora at dependent portions. There is no evidence of abcess or mass within deep tissue. The skin maintains typical normal skin folds. Psych: Patient's affect is normal - Patient Status Disposition: Home, Self-Care Condition: Fair Overall status at discharge: patient is progressing back to baseline - Discharge Instructions Instructions: Pancreatitis (DC), Urinary Tract Infection in Women (DC), Syncope (DC) Follow Up With: Garfield Lam MD [Partnered Physician] - (Office will call patient at home with date and time of appt. Thank you ) Kota Rubi MD [Primary Care Provider] - 01/24/18 9:00 am - Diet and Activity Activity: increase activity as tolerated Diet: diabetic diet - VTE Documentation of Mechanical Device: Intermittent pneumatic compression device
[2018-01-16] MEDS ORDERED: Aminoglycoside Consult 1 EACH MC ONE (15:24)
[2018-01-16] MEDS ORDERED: cephALEXin 500 MG CAPSULE PO SCH (21:00)
[2018-01-16] MEDS ORDERED: Doxycycline 100 MG CAPSULE PO SCH (21:00)
--- NOTE | 2018-01-18 08:45 | Electrocardiograph Report ---
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
== END 2018-01-16 15:25 | disposition home or self-care (01) ==
LOC: 3ANU 13:40 → EMEROOARM 13:40 → SUATTDRO 19:04 → 3ANU 20:19
PROVIDERS: ADMIT Internal Medicine; ATTEND Internal Medicine

== ENCOUNTER 2018-05-25 13:14 | Observation (INO) ==
--- NOTE | 2018-05-25 13:42 | Emergency Department Note ---
Disposition Clinical Impression: Hypertensive emergency Disposition: Admitted As Inpatient Condition: Undetermined Referrals: NONE,PCP [Primary Care Provider] - Forms: ED Satisfaction Letter Time of Disposition: 15:21 General Adult HPI - General Chief complaint: ED Weakness Stated complaint: Weakness Time Seen by Provider: 05/25/18 13:20 Source: patient, EMS Mode of arrival: EMS Limitations: no limitations Nursing Notes Reviewed: Yes Vital Signs Reviewed: Yes - History of Present Illness HPI Narrative: 87-year-old female with history of hypertension arrives to the emergency department. The patient states her roughly 2 days she has been feeling well. The patient has a headache. The patient states that she can she had a stroke. The patient is shaking of bilateral upper extremity is. No numbness or weakness noted. The patient denies any vomiting, diarrhea, chest pain, difficulty breathing. The patient does admit to some associated nausea. She denies any anticoagulant use. She denies any traumatic injury. She denies any other complaints at this time. She does have a past history of CVA. No acute process noted on physical examination. The only exception is some ataxia noted at bilateral upper extremities with finger-nose testing. Pain Scale: 0 - Related Data Home Medications Medication Instructions Recorded Confirmed Aspirin Enteric Coated [Aspirin EC] 81 mg PO DAILY 01/27/15 01/14/18 Cholecalciferol (Vitamin D3) 1,000 unit PO DAILY 01/27/15 01/14/18 [Vitamin D] Docusate [Colace] 100 mg PO BID 01/27/15 01/14/18 Simvastatin [Zocor] 20 mg PO QPM 01/27/15 01/14/18 Doxepin HCl 150 mg PO HS 02/23/17 01/14/18 Levothyroxine Sodium 50 mcg PO QAM 02/23/17 01/14/18 Losartan Potassium [Cozaar] 100 mg PO DAILY 02/23/17 01/14/18 Metoprolol XL (24 HR) Succ [Toprol 25 mg PO DAILY 02/23/17 01/14/18 Xl] Omeprazole [PriLOSEC] 40 mg PO DAILY 02/23/17 01/14/18 Polyethylene Glycol 3350 [MiraLAX 17 gm PO DAILY PRN 02/23/17 01/14/18 bowel prep] HYDROmorphone [Dilaudid] 2 mg PO Q8HR 01/14/18 01/14/18 Previous Rx's Medication Instructions Recorded Calamine/Zinc oxide Lotion 1 appl TP TID PRN 10 Days #1 bottle 01/16/18 [Caladryl Lotion] Doxycycline 100 mg PO BID 9 Days #18 capsule 01/16/18 cephALEXin [Keflex] 500 mg PO BID 9 Days #18 capsule 01/16/18 Allergies Allergy/AdvReac Type Severity Reaction Status Date / Time oxycodone [From Percocet] AdvReac Rash Verified 10/28/16 13:26 Penicillins AdvReac Itching Verified 10/28/16 13:26 Sulfa (Sulfonamide AdvReac Vomiting Verified 10/28/16 13:26 Antibiotics) All systems ED: reviewed and negative except as stated. Constitutional: Reports: weakness. Denies: fever, chills ENT ED: Denies: dysphagia Cardiovascular: Denies: chest pain Respiratory: Denies: dyspnea Gastrointestinal: Reports: nausea. Denies: abdominal pain, vomiting, diarrhea, constipation, hematemesis, melena, hematochezia Genitourinary: Denies: urgency, dysuria Musculoskeletal: Denies: back pain, neck pain Integumentary: Denies: rash Neurological: Reports: headache, weakness. Denies: numbness, paresthesias, confusion, vertigo Past Medical History - Past Medical History Attestation: Yes The following information was validated with the patient. 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 - Social History Smoking Status: Never smoker Smokeless Tobacco Status: No Alcohol use: Reports: none Drug use: Reports: none Physical Exam - General Limitations: no limitations General appearance: alert, in no apparent distress, anxious - Head Head exam: atraumatic, normocephalic, normal inspection - Eye Eye exam: Present: normal appearance, PERRL, EOMI - ENT ENT exam: normal exam, normal oropharynx, mucous membranes moist - Neck Neck exam: Present: normal inspection, full ROM, trachea midline - Chest Chest inspection: Present: normal inspection - Respiratory Respiratory exam: Present: normal lung sounds bilaterally. Absent: respiratory distress - Cardiovascular Cardiovascular exam: Present: regular rate, normal rhythm, normal heart sounds - Abdominal Exam Abdominal exam: Present: soft, Non-Tender. Absent: tenderness, distention, guarding, rebound, rigidity, Nascimento's sign, Rovsing's sign, pulsatile mass, hernia, scar - Extremities Exam Extremities exam: Present: normal inspection, full ROM, normal capillary refill, other (Range of motion less secondary to weakness of bilateral lower extremities. Sensation intact.). Absent: tenderness, pedal edema - Neurological Exam Neurological exam: Present: alert, oriented X3, CN II-XII intact - Expanded Neurological Exam Patient oriented to: Present: person, place, time Speech: Present: fluid speech Cranial nerves: EOM function (II, III, IV, ): Normal, facial sensation (V): Normal, facial palsy (VII): Normal Cerebellar function: finger to nose: Abnormal Left, Abnormal Right Motor strength - LUE: 5/5 Motor strength - RUE: 5/5 Motor strength - LLE: 3/5 Motor strength - RLE: 3/5 Sensory exam upper extremity: light touch: Normal Sensory exam lower extremity: light touch: Normal Coma Scale Eye Opening: Spontaneous Coma Scale Motor Response: Obeys Commands Coma Scale Verbal Response: Oriented Coma Scale Total: 15 - Skin Skin exam: Present: warm, dry, intact, normal color Course - Reevaluation(s) Reevaluation #1: Patient's repeat blood pressure was 180 systolic. The patient is resting comfortably in the room at this time. CT scan of the head and chest x-ray demonstrates no acute process. Remaining labs are pending. Patient will likely be admitted to the hospital for further workup and care. No further questions or concerns noted. The patient is had a roughly 20% drop in her blood pressure since she is been here on her own without treatment. We will continue to [facility]. The patient continues to have no active chest pain. Time: 15:03 Vital Signs Temperature 97.8 F 05/25/18 13:16 Pulse Rate 93 05/25/18 13:16 Respiratory Rate 24 05/25/18 13:16 Blood Pressure 219/100 05/25/18 13:16 O2 Sat by Pulse Oximetry 97 05/25/18 13:16 Temperature 97.8 F 05/25/18 13:16 Pulse Rate 94 05/25/18 15:10 Respiratory Rate 24 05/25/18 13:16 Blood Pressure 158/80 05/25/18 15:10 O2 Sat by Pulse Oximetry 97 05/25/18 13:16 Oxygen Delivery Oxygen Delivery Room Air Medical Decision Making - MDM Narrative Medical decision making narrative: Accepted by Dr. Demarco - Lab Data Lab results reviewed: Yes I reviewed the patient's lab results. Result diagrams: 05/25/18 14:06 05/25/18 14:06 Lab Results 05/25/18 05/25/18 Range/Units 14:06 14:06 WBC 4.6 (4.3-11.1) K/mcL RBC 4.24 (3.82-4.97) M/mcL Hgb 12.5 (11.5-15.4) g/dL Hct 36.5 (35.3-44.9) % MCV 86.1 (83.0-100.0) fL MCH 29.5 (28.0-33.3) pg MCHC 34.2 (31.6-35.5) g/dL RDW 13.0 (11.5-14.5) % Plt Count 142 (140-400) K/mcL MPV 9.6 (9.4-12.4) fL Immature Gran % 0.4 (0-4) % Seg Neutrophils % 64.0 % Lymphocytes % 23.6 % Monocytes % 9.3 % Eosinophils % 2.0 % Basophils % 0.7 % Neutrophils # 3.0 (1.6-8.9) K/mcL Lymphocytes # 1.1 (0.6-4.6) K/mcL Monocytes # 0.4 (0.0-1.3) K/mcL Eosinophils # 0.1 (0.0-0.6) K/mcL Basophils # 0.0 (0.0-0.2) K/mcL Sodium 135 L (136-145) mEq/L Potassium 3.6 (3.5-5.1) mEq/L Chloride 99 (98-107) mEq/L Carbon Dioxide 27 (23-29) mEq/L BUN 13 (8-23) mg/dL Creatinine 1.06 (0.60-1.20) mg/dL Est GFR ( Amer) 60 (> 60) Est GFR (Non-Af Amer) 49 L (> 60) BUN/Creatinine Ratio 12 (6-26) Glucose 141 H (70-105) mg/dL Calculated Osmolality 282 (280-300) Calcium 9.4 (8.6-10.3) mg/dL Total Bilirubin 0.4 (0.3-1.0) mg/dL Direct Bilirubin 0.1 (0.0-0.2) mg/dL Indirect Bilirubin 0.3 (0.0-1.2) mg/dL AST 21 (13-39) Units/L ALT 29 (7-52) Units/L Alkaline Phosphatase 79 (34-104) Units/L Troponin I < 0.03 (< 0.04) ng/mL Serum Total Protein 6.5 (6.4-8.9) g/dL Albumin 3.9 (3.5-5.7) g/dL Globulin 2.6 (2.4-3.5) g/dL Albumin/Globulin Ratio 1.5 (1.1-2.2) - Radiology Data Radiology results reviewed: Yes I reviewed the patient's radiology results. Chest X-Ray 05/25/18 13:22 IMPRESSION: Normal chest x-ray D/ / Alexander Zaidi MD / Alexander Zaidi MD Interpreting Provider: Alexander Zaidi MD Head CT 05/25/18 13:22 IMPRESSION: No acute intracranial abnormality. D/ / Alexander Zaidi MD / Alexander Zaidi MD Interpreting Provider: Alexander Zaidi MD - EKG Data EKG #1 EKG attestation: Yes I reviewed and interpreted this EKG. EKG results narrative: Heart rate 94 BPM. Normal sinus rhythm with diffuse ST depression and inverted T waves in 1, 2, 3, aVF, V4, V5, V6. These are new EKG changes from 01/14/2018. No ST elevation noted. EKG #2 with leads in the exact same place. Heart rate 83 bpm. Normal sinus rhythm. No ST elevation or ST depression noted. No acute changes noted. A from previous EKG from 01/14/2018. Noted dynamic changes from initial EKG performed at 1322. The second repeat was at 1347. Attestation Statement - Attestation Attestation: Past medical history of CVA, diabetes, hyperlipidemia, hypertension. Weakness, nausea, and feeling weird in her head for the last 2 days. Patient describes a fullness in the front of her face. Patient states that she had difficulty getting up off the couch and getting around. Patient denies chest pain or shortness of breath. On exam she has an NIH of 0. No focal neurologic deficits. She states that she had a previous stroke with no specific deficits. On initial EKG the patient did have diffuse ST depressions. Her blood pressure was noted to be 219 systolic. With 15 minutes of observation within the emergency department she has come down by proximally 20% to a blood pressure of 180. EKG changes resolved. Blood work is pending. Patient will likely require admission for further evaluation. General: Well appearing, nontoxic, generalized weakness Head: Normocephalic Atraumatic Eyes: PERRL, EOMI ENT: Airway patent, no stridor Neck: supple, no meningismus Chest: Lungs clear to auscultation bilateral Cardiac: Regular rhythm Abdomen: soft, nontender, nondistended; no guarding, rebound, or tenderness to percussion Musculoskeletal: Calves symmetric, nontender Skin: No rash, normal skin tone Neuro: Alert and Oriented to person, place, and time; No focal deficit, CN 2-12 symmetric and intact, 5 out of 5 strength to the upper and lower extremities without pronator drift or leg hitting the bed.
[2018-05-25 14:43] LABS: Basophils % 0.7 %; Eosinophils # 0.1 K/mcL (0.0-0.6); Hematocrit 36.5 % (35.3-44.9); Hemoglobin 12.5 g/dL (11.5-15.4); Immature Granulocytes % 0.4 % (0-4); Lymphocytes # 1.1 K/mcL (0.6-4.6); Lymphocytes % 23.6 %; Mean Corpuscular HGB Conc 34.2 g/dL (31.6-35.5); Mean Corpuscular Hemoglobin 29.5 pg (28.0-33.3); Mean Corpuscular Volume 86.1 fL (83.0-100.0); Mean Platelet Volume 9.6 fL (9.4-12.4); Monocytes # 0.4 K/mcL (0.0-1.3); Monocytes % 9.3 %; Platelet Count 142 K/mcL (140-400); Red Blood Count 4.24 M/mcL (3.82-4.97)
[2018-05-25 15:05] LABS: Alanine Aminotransferase 29 Units/L (7-52); Albumin 3.9 g/dL (3.5-5.7); Albumin/Globulin Ratio 1.5 (1.1-2.2); Alkaline Phosphatase 79 Units/L (34-104); Aspartate Amino Transferase 21 Units/L (13-39); BUN/Creatinine Ratio 12 (6-26); Bilirubin,Direct 0.1 mg/dL (0.0-0.2); Bilirubin,Indirect 0.3 mg/dL (0.0-1.2); Bilirubin,Total 0.4 mg/dL (0.3-1.0); Blood Urea Nitrogen 13 mg/dL (8-23); Calcium 9.4 mg/dL (8.6-10.3); Carbon Dioxide 27 mEq/L (23-29); Chloride 99 mEq/L (98-107); Globulin 2.6 g/dL (2.4-3.5); Glucose 141 mg/dL (70-105); Osmolality,Calculated 282 (280-300); Potassium 3.6 mEq/L (3.5-5.1); Sodium 135 mEq/L (136-145); Total Protein 6.5 g/dL (6.4-8.9); Troponin I < 0.03 ng/mL (< 0.04); eGFR For Non-African Americans 49 (> 60)
--- NOTE | 2018-05-25 16:54 | Internal Med History&Physical ---
Date of Encounter: 05/25/18 Time of Encounter: 14:00 Internal Medicine - H&P: HPI Chief complaint: Headaches Admitted From: Home Plans for Post Hospital Care: Home History of present illness: Patient is an 87-year-old female with past medical history significant for hypertension, hyperlipidemia, diabetes and GERD who presents to the ER on 05/25/18 due to headaches. She reports approximately 2 days ago of experiencing which she describes as head pressure. Patient reported of associated symptoms of visual changes and slurred speech. She was concerned that she was having a stroke therefore all EMS brought into the hospital for further evaluation. In the ER patient was found to have a blood pressure of 219/[address] de pressions in lateral leads on EKG. However, ST depressions in lateral leads on repeat EKG and approximate [address] of the head showed no acute intracranial abnormality. She will be admitted to medical surgical unit overnight for observation. Past Med Surg Social Fam HX - Past Medical History Medical history: CVA, diabetes, GERD, hyperlipidemia, hypertension, TIA, other Additional medical history: UTI, PANCREATITIS Psychiatric history: anxiety - Past Surgical History Surgical History: cancer surgery, orthopedic, other, other, , appendectomy Additional surgical history: Left upper arm ORIF - Social History Smoking Status: Never smoker Smokeless Tobacco Status: No Alcohol use: none Drug use: none - Family History Father Adopted: No Family Member Ethnicity: Non- Living Status: Hx Family Cardiac Disorders: No Hx Family Respiratory Disorders: No Hx Family GI Disorders: No Hx Family Endocrine Disorder: No Mother Adopted: No Family Member Ethnicity: Non- Living Status: Hx Family Cardiac Disorders: No Hx Family Respiratory Disorders: No Hx Family Cancer: Yes Hx Family GI Disorders: No Hx Family Endocrine Disorder: No Hx Family Neuromuscular Disorders: No Hx Family Neurologic Disorders: No Hx Family HEENT Disorders: No Hx Family Autoimmune Disorders: No Internal Medicine - H&P: Meds Aspirin Enteric Coated [Aspirin EC] 81 mg PO DAILY 01/27/15 [History] Cholecalciferol (Vitamin D3) [Vitamin D] 1,000 unit PO DAILY 01/27/15 [History] Docusate [Colace] 100 mg PO BID 01/27/15 [History] Simvastatin [Zocor] 20 mg PO QPM 01/27/15 [History] Doxepin HCl 150 mg PO HS 02/23/17 [History] Levothyroxine Sodium 50 mcg PO QAM 02/23/17 [History] Metoprolol XL (24 HR) Succ [Toprol Xl] 25 mg PO DAILY 02/23/17 [History] HYDROmorphone [Dilaudid] 2 mg PO Q8HR 01/14/18 [History] Calamine/Zinc oxide Lotion [Caladryl Lotion] 1 appl TP TID PRN 10 Days #1 bottle 01/16/18 [Rx] Montelukast [Singulair] 5 mg PO DAILY 05/25/18 [History] Allergy/AdvReac Type Severity Reaction Status Date / Time oxycodone [From Percocet] AdvReac Rash Verified 10/28/16 13:26 Penicillins AdvReac Itching Verified 10/28/16 13:26 Sulfa (Sulfonamide AdvReac Vomiting Verified 10/28/16 13:26 Antibiotics) All Systems PM: A 10-system review of systems was performed and is negative for pertinent findings except as documented above in the HPI. - Constitutional Vitals: Temp Pulse Resp BP Pulse Ox 97.8 F 94 24 158/80 97 05/25/18 13:16 05/25/18 15:10 05/25/18 13:16 05/25/18 15:10 05/25/18 13:16 General appearance: Present: A&O X 3, no acute distress Exam: As above - Head Head exam: Present: normocephalic - Eye Eye exam: Present: normal appearance - ENT ENT exam: Present: mucous membranes dry - Respiratory Respiratory exam: Present: CTAB. Absent: accessory muscle use, rales, rhonchi, wheezes - Cardiovascular Cardiovascular exam: Present: RRR, +S1, +S2. Absent: diastolic murmur, gallop, rubs, systolic murmur - GI/Abdominal GI/Abdominal exam: Present: normal bowel sounds, soft, no peritoneal signs. Absent: distended, tenderness - Extremities Exam Extremities exam: Absent: pedal edema - Neurological Exam Neurological exam: Present: oriented X3 - Expanded Neurological Exam Neurological exam expanded: Absent: expressive aphasia, inattentive, memory los s-recent event, memory loss-remote event, receptive aphasia, total aphasia, tremor Speech: Present: fluid speech. Absent: garbled, slurred - Psychiatric Psychiatric exam: Present: normal mood - Skin Skin exam: Present: pallor Internal Med - H&P Results - Labs CBC & Chem 7: 05/25/18 14:06 05/25/18 14:06 Labs: Short CBC 05/25/18 Range/Units 14:06 WBC 4.6 (4.3-11.1) K/mcL Hgb 12.5 (11.5-15.4) g/dL Hct 36.5 (35.3-44.9) % Plt Count 142 (140-400) K/mcL Neutrophils # 3.0 (1.6-8.9) K/mcL BMP 05/25/18 14:06 Sodium 135 L Potassium 3.6 Chloride 99 Carbon Dioxide 27 BUN 13 Creatinine 1.06 Glucose 141 H Calcium 9.4 Cardiac Enzymes 05/25/18 Range/Units 14:06 Troponin I < 0.03 (< 0.04) ng/mL Liver Function 05/25/18 Range/Units 14:06 Total Bilirubin 0.4 (0.3-1.0) mg/dL Direct Bilirubin 0.1 (0.0-0.2) mg/dL AST 21 (13-39) Units/L ALT 29 (7-52) Units/L Alkaline Phosphatase 79 (34-104) Units/L Albumin 3.9 (3.5-5.7) g/dL - Impressions ITS Impressions Chest X-Ray 05/25/18 13:22 IMPRESSION: Normal chest x-ray D/ / Alexander Zaidi MD / Alexander Zaidi MD Interpreting Provider: Alexander Zaidi MD Head CT 05/25/18 13:22 IMPRESSION: No acute intracranial abnormality. D/ / Alexander Zaidi MD / Alexander Zaidi MD Interpreting Provider: Alexander Zaidi MD - Assessment and plan (1) Hypertensive emergency Current Visit: Yes Status: Acute Assessment and plan: In the ER patient was found to have a blood pressure of 219/[address] depressions in lateral leads on EKG which resolved on repeat EKG She reports a history of uncontrolled hypertension and blood pressure was uncontrolled at a recent admission on 01/15/18 as well Will continue patient's home blood pressure medications and monitor overnight (2) Hypothyroid Current Visit: Yes Status: Acute Assessment and plan: Continue patient's home dose of levothyroxine Qualifiers: Hypothyroidism type: unspecified Qualified Code(s): E03.9 - Hypothyroidism, unspecified (3) HLD (hyperlipidemia) Current Visit: Yes Status: Acute Assessment and plan: Continue patient's home dose of statin Qualifiers: Hyperlipidemia type: unspecified Qualified Code(s): E78.5 - Hyperlipidemia, unspecified (4) Mood disorder Current Visit: Yes Status: Acute Assessment and plan: Continue patient's home dose of doxepin (5) DVT prophylaxis Current Visit: No Status: Acute Assessment and plan: Subcutaneous heparin - Time Spent With Patient Total time spent is greater than 50% in coordination of care (as documented) at patient's floor/unit and/or counseling patient:
[2018-05-25] MEDS ORDERED: Calamine/Zinc oxide Lotion 120 ML BOTTLE TP PRN (17:01)
[2018-05-25] MEDS ORDERED: Naloxone 0.4 MG/ML INJ IVP PRN (17:04)
[2018-05-25] MEDS ORDERED: *HR* HYDROmorphone 2 MG TABLET PO ONE ×2 (18:08→18:20)
[2018-05-25] MEDS ORDERED: Metoprolol XL (24 HR) Succ 25 MG TAB.ER.24H PO ONE (19:03)
[2018-05-25] MEDS: *HR* Heparin 5,000 UNIT/ML VIAL SQ SCH (21:14)
[2018-05-25] MEDS ORDERED: Acetaminophen 325 MG TABLET PO PRN (21:35)
[2018-05-25 21:44] LABS: Bilirubin,Urine Negative (Negative); Blood,Urine Negative (Negative); Clarity,Urine Clear (Clear); Color,Urine Yellow (Yellow); Glucose,Urine (UA) Normal (Normal); Ketones,Urine Negative (Negative); Leukocyte Esterase,Urine Trace (Negative); Nitrite,Urine Negative (Negative); PH,Urine 7.5 pH Units (5.0-8.0); Protein,Urine Trace mg/dL (Neg-Trace); Specific Gravity,Urine < 1.005 (1.010-1.025); Urobilinogen,Urine Normal (Normal)
[2018-05-25 21:47] LABS: Bacteria,Urine None Seen per hpf (None-Few); Hyaline Casts,Urine None Seen per lpf (None-Few); Squamous Epithelial Cell,Urine Few per lpf (None-Few); WBC,Urine 0-3 per hpf (0-3)
[2018-05-25] MEDS: *HR* HYDROmorphone 2 MG TABLET PO SCH (23:21)
[2018-05-26 03:06] LABS: Basophils % 0.6 %; Eosinophils # 0.1 K/mcL (0.0-0.6); Eosinophils % 2.2 %; Hematocrit 39.7 % (35.3-44.9); Hemoglobin 13.2 g/dL (11.5-15.4); Immature Granulocytes % 0.5 % (0-4); Lymphocytes # 2.1 K/mcL (0.6-4.6); Mean Corpuscular HGB Conc 33.2 g/dL (31.6-35.5); Mean Corpuscular Volume 87.3 fL (83.0-100.0); Mean Platelet Volume 9.6 fL (9.4-12.4); Monocytes # 0.5 K/mcL (0.0-1.3); Monocytes % 7.7 %; Neutrophils # 3.4 K/mcL (1.6-8.9); Platelet Count 167 K/mcL (140-400); Red Blood Count 4.55 M/mcL (3.82-4.97); Red Cell Distribution Width 12.9 % (11.5-14.5)
[2018-05-26 03:24] LABS: Calcium 9.4 mg/dL (8.6-10.3); Potassium 3.9 mEq/L (3.5-5.1)
[2018-05-26] MEDS: *HR* Heparin 5,000 UNIT/ML VIAL SQ SCH ×2 (05:28→15:16)
[2018-05-26] MEDS: *HR* HYDROmorphone 2 MG TABLET PO SCH (07:12)
[2018-05-26] MEDS ORDERED: Metoprolol XL (24 HR) Succ 50 MG TAB.ER.24H PO SCH (09:00)
[2018-05-26] MEDS ORDERED: Aspirin Enteric Coated 81 MG Tablet PO SCH (09:00)
[2018-05-26] MEDS ORDERED: Metoprolol XL (24 HR) Succ 25 MG TAB.ER.24H PO SCH (09:00)
[2018-05-26] MEDS ORDERED: Cholecalciferol (D-3) 1,000 UNIT TABLET PO SCH (09:00)
[2018-05-26 11:31] VITALS: BP 119/71
--- NOTE | 2018-05-26 16:01 | Discharge Summary ---
- NOTES TO OUTPATIENT PROVIDER Notes to Outpatient Provider: none Orders not resulted at time of discharge: Pending orders 05/25/18 13:22 ECG 12 lead ECG [ECG] Stat 05/25/18 21:32 Culture,Urine [RM] Stat 05/26/18 06:00 ECG 12 lead ECG [ECG] AM 0600 Date of Encounter: 05/26/18 Time of Encounter: 11:00 - Discharge Diagnosis (1) Hypertensive emergency Priority: Primary Status: Acute (2) Hypothyroid Priority: Secondary Status: Acute Qualifiers: Hypothyroidism type: unspecified Qualified Code(s): E03.9 - Hypothyroidism, unspecified (3) HLD (hyperlipidemia) Priority: Secondary Status: Acute Qualifiers: Hyperlipidemia type: unspecified Qualified Code(s): E78.5 - Hyperlipidemia, unspecified (4) Mood disorder Priority: Secondary Status: Acute Hospital course: Patient is an 87-year-old female with past medical history significant for hypertension, hyperlipidemia, diabetes and GERD who presents to the ER on 05/25/18 due to headaches. She reports approximately 2 days ago of experiencing which she describes as he ad pressure. Patient reported of associated symptoms of visual changes and slurred speech. She was concerned that she was having a stroke therefore all EMS brought into the hospital for further evaluation. In the ER patient was found to have a blood pressure of 219/[address] depressions in lateral leads on EKG. However, ST depressions in lateral leads on repeat EKG and approximate [address] of the head showed no acute intracranial abnormality. She will be admitted to medical surgical unit overnight for observation. During patient's hospital stay her blood pressures remained within normal limits on home dose of blood pressure medications. Patient will be discharged to follow-up with primary care provider. - Time Spent with Patient Total time spent providing and/or coordinating discharge services: Less than 30 minutes - Discharge Medications Home Medications: Aspirin Enteric Coated [Aspirin EC] 81 mg PO DAILY 01/27/15 [History] Cholecalciferol (Vitamin D3) [Vitamin D] 1,000 unit PO DAILY 01/27/15 [History] Docusate [Colace] 100 mg PO BID 01/27/15 [History] Simvastatin [Zocor] 20 mg PO QPM 01/27/15 [History] Doxepin HCl 150 mg PO HS 02/23/17 [History] Levothyroxine Sodium 50 mcg PO QAM 02/23/17 [History] Metoprolol XL (24 HR) Succ [Toprol Xl] 25 mg PO DAILY 02/23/17 [History] HYDROmorphone [Dilaudid] 2 mg PO Q8HR 01/14/18 [History] Calamine/Zinc oxide Lotion [Caladryl Lotion] 1 appl TP TID PRN 10 Days #1 bottle 01/16/18 [Rx] Montelukast [Singulair] 5 mg PO DAILY 05/25/18 [History] Allergies/Adverse Reactions: Allergy/AdvReac Type Severity Reaction Status Date / Time oxycodone [From Percocet] AdvReac Rash Verified 10/28/16 13:26 Penicillins AdvReac Itching Verified 10/28/16 13:26 Sulfa (Sulfonamide AdvReac Vomiting Verified 10/28/16 13:26 Antibiotics) Date of admission: 05/25/18 15:35 Primary care physician: PCP NONE Consults: 05/25/18 17:04 Consult to Pastoral Services [CONS] Routine Comment: - Constitutional Vitals: Temp Pulse Resp BP Pulse Ox 97.6 F 77 16 119/71 96 05/26/18 11:26 05/26/18 11:26 05/26/18 11:26 05/26/18 11:26 05/26/18 11:26 General appearance: Present: A&O X 3, no acute distress Exam: Gen.: Nonacute distress, alert and oriented 3 Skin: Normal color - Patient Status Disposition: Home, Self-Care Condition: Good - Discharge Instructions Instructions: Chronic Hypertension (DC) Follow Up With: Kota Rubi MD [Non-Partnered Physician] - (web request )
--- NOTE | 2018-05-27 14:51 | Electrocardiograph Report ---
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
--- NOTE | 2018-05-27 14:52 | Electrocardiograph Report ---
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
== END 2018-05-26 16:22 | disposition home or self-care (01) ==
LOC: 2ANU 13:14 → EMEROOARM 13:14 → SUATTDRO 15:35 → 2ANU 15:48
PROVIDERS: ADMIT Internal Medicine; ATTEND Hospitalist

== ENCOUNTER 2019-07-16 14:00 | Observation (INO) ==
[2019-07-16] MEDS ORDERED: Isovue-370 500 ML BOTTLE IVP ONE (14:25)
[2019-07-16 14:59] LABS: Hematocrit 36.7 % (35.3-44.9); Hemoglobin 12.4 g/dL (11.5-15.4); Mean Corpuscular HGB Conc 33.8 g/dL (31.6-35.5); Mean Corpuscular Hemoglobin 30.2 pg (28.0-33.3); Mean Corpuscular Volume 89.3 fL (83.0-100.0); Mean Platelet Volume 9.6 fL (9.4-12.4); Platelet Count 120 K/mcL (140-400); Red Blood Count 4.11 M/mcL (3.82-4.97); Red Cell Distribution Width 12.7 % (11.5-14.5); White Blood Count 5.7 K/mcL (4.3-11.1)
[2019-07-16 15:19] LABS: BUN/Creatinine Ratio 13 (6-26); Blood Urea Nitrogen 15 mg/dL (8-23); Calcium 9.5 mg/dL (8.6-10.3); Carbon Dioxide 28 mEq/L (23-29); Chloride 100 mEq/L (98-107); Glucose 138 mg/dL (70-105); Osmolality,Calculated 287 (280-300); Potassium 3.3 mEq/L (3.5-5.1); Sodium 137 mEq/L (136-145); Troponin I < 0.03 ng/mL (< 0.04); eGFR For African Americans 55 (> 60); eGFR For Non-African Americans 45 (> 60)
[2019-07-16] MEDS ORDERED: *HR* HYDROcodone/Acet 5/325 mg TABLET PO PRN (18:32)
[2019-07-16] MEDS ORDERED: Aspirin 325 MG TABLET PO ONE (18:34)
[2019-07-16] MEDS ORDERED: Naloxone 0.4 MG/ML INJ IVP PRN (18:34)
[2019-07-16] MEDS ORDERED: Ondansetron ODT 4 MG TAB.RAPDIS SL PRN (18:35)
[2019-07-16] MEDS ORDERED: hydrALAZINE 25 MG TABLET PO SCH (18:45)
[2019-07-16] MEDS ORDERED: *HR* Labetalol 20 MG/4 ML SYRINGE IVP PRN (18:45)
[2019-07-16] MEDS ORDERED: Potassium Chloride Elixir 20 MEQ/15 ML UDC PO ONE (21:13)
[2019-07-16] MEDS ORDERED: *HR* HYDROmorphone 2 MG TABLET PO ONE (21:13)
[2019-07-16] MEDS: Metoprolol XL (24 HR) Succ 25 MG TAB.ER.24H PO SCH (21:18)
[2019-07-16] MEDS ORDERED: *HR* HYDROmorphone 2 MG TABLET PO PRN (21:21)
[2019-07-16] MEDS: *HR* Labetalol 20 MG/4 ML SYRINGE IVP PRN (22:14)
[2019-07-16] MEDS: hydrALAZINE 25 MG TABLET PO SCH (22:25)
[2019-07-16 23:22] LABS: Bilirubin,Urine Negative (Negative); Blood,Urine Negative (Negative); Clarity,Urine Clear (Clear); Color,Urine Yellow (Yellow); Glucose,Urine (UA) Normal (Normal); Ketones,Urine Negative (Negative); Leukocyte Esterase,Urine Small (Negative); Nitrite,Urine Negative (Negative); Protein,Urine 30 mg/dL (Neg-Trace); Specific Gravity,Urine 1.026 (1.010-1.025); Urobilinogen,Urine Normal (Normal)
[2019-07-16 23:25] LABS: Bacteria,Urine None Seen per hpf (None-Few); Hyaline Casts,Urine None Seen per lpf (None-Few); RBC,Urine 0-3 per hpf (0-3); Squamous Epithelial Cell,Urine None Seen per lpf (None-Few); WBC,Urine 15-30 per hpf (0-3)
[2019-07-17] MEDS: *HR* Labetalol 20 MG/4 ML SYRINGE IVP PRN (01:17)
[2019-07-17] MEDS: hydrALAZINE 25 MG TABLET PO SCH ×2 (05:18→13:38)
[2019-07-17 07:00] LABS: Basophils % 0.7 %; Eosinophils # 0.1 K/mcL (0.0-0.6); Eosinophils % 2.4 %; Hematocrit 36.6 % (35.3-44.9); Hemoglobin 12.1 g/dL (11.5-15.4); Immature Granulocytes % 0.2 % (0-4); Lymphocytes % 37.6 %; Mean Corpuscular HGB Conc 33.1 g/dL (31.6-35.5); Mean Corpuscular Hemoglobin 29.4 pg (28.0-33.3); Mean Corpuscular Volume 88.8 fL (83.0-100.0); Mean Platelet Volume 10.2 fL (9.4-12.4); Monocytes # 0.5 K/mcL (0.0-1.3); Monocytes % 9.7 %; Neutrophils # 2.7 K/mcL (1.6-8.9); Platelet Count 145 K/mcL (140-400); Red Blood Count 4.12 M/mcL (3.82-4.97); Red Cell Distribution Width 13.1 % (11.5-14.5); Segmented Neutrophils % 49.4 %; White Blood Count 5.4 K/mcL (4.3-11.1)
[2019-07-17 07:09] LABS: Calcium 9.1 mg/dL (8.6-10.3); Potassium 4.6 mEq/L (3.5-5.1)
[2019-07-17] MEDS: Metoprolol XL (24 HR) Succ 25 MG TAB.ER.24H PO SCH (08:50)
[2019-07-17 15:41] VITALS: BP 175/79
== END 2019-07-17 17:10 | disposition home health service (06) ==
LOC: 3BNU 14:00 → EMEROOARM 14:00 → 3BNU 19:47
PROVIDERS: ADMIT Internal Medicine; ATTEND Internal Medicine

== ENCOUNTER 2020-03-27 12:21 | Observation (INO) ==
[2020-03-27 13:05] LABS: Hematocrit 38.2 % (35.3-44.9); Immature Granulocytes % 0.6 % (0-4); Mean Platelet Volume 10.1 fL (9.4-12.4); Red Cell Distribution Width 12.8 % (11.5-14.5)
[2020-03-27 13:07] LABS: Basophils % 0.6 %; Eosinophils # 0.1 K/mcL (0.0-0.6); Eosinophils % 2.7 %; Hemoglobin 12.3 g/dL (11.5-15.4); Immature Platelets 3.6 % (1.1-6.1); Lymphocytes # 1.5 K/mcL (0.6-4.6); Lymphocytes % 29.7 %; Mean Corpuscular HGB Conc 32.2 g/dL (31.6-35.5); Mean Corpuscular Hemoglobin 29.5 pg (28.0-33.3); Mean Corpuscular Volume 91.6 fL (83.0-100.0); Monocytes # 0.3 K/mcL (0.0-1.3); Monocytes % 6.3 %; Neutrophils # 3.1 K/mcL (1.6-8.9); Platelet Count 118 K/mcL (140-400); Red Blood Count 4.17 M/mcL (3.82-4.97); Segmented Neutrophils % 60.1 %; White Blood Count 5.1 K/mcL (4.3-11.1)
[2020-03-27 13:27] LABS: BUN/Creatinine Ratio 12 (6-26); Blood Urea Nitrogen 15 mg/dL (8-23); Calcium 9.5 mg/dL (8.6-10.3); Carbon Dioxide 24 mEq/L (23-29); Chloride 99 mEq/L (98-107); Glucose 233 mg/dL (70-105); Osmolality,Calculated 290 (280-300); Potassium 3.7 mEq/L (3.5-5.1); Sodium 136 mEq/L (136-145); eGFR For African Americans 51 (> 60); eGFR For Non-African Americans 42 (> 60)
[2020-03-27 13:28] LABS: Troponin I < 0.03 ng/mL (< 0.04)
[2020-03-27 14:53] LABS: Bilirubin,Urine Negative (Negative); Blood,Urine Negative (Negative); Clarity,Urine Clear (Clear); Color,Urine Colorless (Yellow); Glucose,Urine (UA) Normal (Normal); Ketones,Urine Negative (Negative); Leukocyte Esterase,Urine Negative (Negative); Nitrite,Urine Negative (Negative); Protein,Urine Negative (Neg-Trace); Specific Gravity,Urine 1.005 (1.010-1.025); Urobilinogen,Urine Normal (Normal)
[2020-03-27] MEDS ORDERED: Dextrose Gel 15 GM/37.5 ML TUBE PO PRN ×2 (17:16)
[2020-03-27] MEDS ORDERED: *HR* Dextrose 50 % in Water (Vial) 50 ML VIAL IVP PRN (17:16)
[2020-03-27] MEDS ORDERED: D5% in Water 1,000 ML IVC PRN (17:16)
[2020-03-27] MEDS ORDERED: Ondansetron 4 MG/2 ML VIAL IVP PRN (17:18)
[2020-03-27] MEDS ORDERED: Naloxone 0.4 MG/ML INJ IVP PRN (17:18)
[2020-03-27] MEDS ORDERED: Acetaminophen 325 MG TABLET PO PRN (17:18)
[2020-03-27] MEDS: *HR* Heparin 5,000 UNIT/ML VIAL SQ SCH (19:01)
[2020-03-27] MEDS: Insulin LISPRO 300 UNITS/3 ML VIAL SQ SCH (22:01)
[2020-03-27] MEDS ORDERED: *HR* HYDROmorphone 2 MG TABLET PO ONE (22:06)
[2020-03-28 02:34] LABS: Hematocrit 37.7 % (35.3-44.9); Hemoglobin 12.6 g/dL (11.5-15.4); Mean Corpuscular HGB Conc 33.4 g/dL (31.6-35.5); Mean Corpuscular Hemoglobin 30.1 pg (28.0-33.3); Mean Corpuscular Volume 90.2 fL (83.0-100.0); Mean Platelet Volume 10.1 fL (9.4-12.4); Platelet Count 149 K/mcL (140-400); Red Blood Count 4.18 M/mcL (3.82-4.97); Red Cell Distribution Width 12.7 % (11.5-14.5); White Blood Count 7.4 K/mcL (4.3-11.1)
[2020-03-28 02:52] LABS: Calcium 9.9 mg/dL (8.6-10.3); Chol/HDL Ratio 2.5 (0-4.9); Magnesium 1.7 mg/dL (1.6-2.6); Potassium 3.8 mEq/L (3.5-5.1)
[2020-03-28] MEDS: *HR* Heparin 5,000 UNIT/ML VIAL SQ SCH ×2 (05:11→17:02)
[2020-03-28 07:35] LABS: Estimated Average Glucose 131 mg/dl
[2020-03-28] MEDS: Insulin LISPRO 300 UNITS/3 ML VIAL SQ SCH ×4 (07:54→17:21)
[2020-03-28] MEDS: hydrALAZINE 25 MG TABLET PO SCH (16:59)
[2020-03-29] MEDS: hydrALAZINE 25 MG TABLET PO SCH ×2 (00:05→08:19)
[2020-03-29 04:20] LABS: Basophils % 0.6 %; Eosinophils # 0.1 K/mcL (0.0-0.6); Hematocrit 39.7 % (35.3-44.9); Hematocrit 40.3 % (35.3-44.9); Hemoglobin 13.2 g/dL (11.5-15.4); Immature Granulocytes % 0.3 % (0-4); Lymphocytes # 1.7 K/mcL (0.6-4.6); Lymphocytes % 23.4 %; Mean Corpuscular HGB Conc 32.8 g/dL (31.6-35.5); Mean Corpuscular HGB Conc 33.2 g/dL (31.6-35.5); Mean Corpuscular Hemoglobin 29.3 pg (28.0-33.3); Mean Corpuscular Hemoglobin 29.7 pg (28.0-33.3); Mean Corpuscular Volume 89.2 fL (83.0-100.0); Mean Corpuscular Volume 89.4 fL (83.0-100.0); Mean Platelet Volume 9.9 fL (9.4-12.4); Monocytes # 0.6 K/mcL (0.0-1.3); Monocytes % 8.2 %; Neutrophils # 4.7 K/mcL (1.6-8.9); Platelet Count 156 K/mcL (140-400); Platelet Count 159 K/mcL (140-400); Red Blood Count 4.45 M/mcL (3.82-4.97); Red Blood Count 4.51 M/mcL (3.82-4.97); Red Cell Distribution Width 12.8 % (11.5-14.5); Red Cell Distribution Width 12.9 % (11.5-14.5); Segmented Neutrophils % 66.5 %; White Blood Count 7.3 K/mcL (4.3-11.1)
[2020-03-29 04:38] LABS: Calcium 9.5 mg/dL (8.6-10.3); Potassium 3.6 mEq/L (3.5-5.1)
[2020-03-29] MEDS: *HR* Heparin 5,000 UNIT/ML VIAL SQ SCH (05:46)
[2020-03-29 07:11] VITALS: BP 112/65
[2020-03-29] MEDS: Insulin LISPRO 300 UNITS/3 ML VIAL SQ SCH (08:19)
[2020-03-29] MEDS ORDERED: Metoprolol XL (24 HR) Succ 25 MG TAB.ER.24H PO SCH (09:00)
[2020-03-29] MEDS ORDERED: Aspirin Enteric Coated 81 MG Tablet PO SCH (09:00)
[2020-03-29] MEDS ORDERED: Cholecalciferol (D-3) 1,000 UNIT (25MCG) TABLET PO SCH (09:00)
[2020-03-29] MEDS ORDERED: lisinopriL 5 MG TABLET PO SCH (09:00)
== END 2020-03-29 12:45 | disposition home health service (06) ==
LOC: 3BNU 12:21 → EMEROOARM 12:21 → SUATTDRO 16:20 → 3BNU 17:20
PROVIDERS: ADMIT Family Medicine; ATTEND Internal Medicine

== ENCOUNTER 2020-10-25 08:54 | Observation (INO) ==
[2020-10-25] MEDS ORDERED: Acetaminophen 325 MG TABLET PO ONE (09:10)
[2020-10-25 09:49] LABS: Basophils % 0.4 %; Eosinophils # 0.1 K/mcL (0.0-0.6); Eosinophils % 1.3 %; Hematocrit 33.4 % (35.3-44.9); Hemoglobin 11.5 g/dL (11.5-15.4); Immature Granulocytes % 0.4 % (0-4); Lymphocytes # 1.3 K/mcL (0.6-4.6); Lymphocytes % 27.3 %; Mean Corpuscular HGB Conc 34.4 g/dL (31.6-35.5); Mean Corpuscular Hemoglobin 30.3 pg (28.0-33.3); Mean Corpuscular Volume 87.9 fL (83.0-100.0); Monocytes # 0.4 K/mcL (0.0-1.3); Neutrophils # 2.9 K/mcL (1.6-8.9); Platelet Count 132 K/mcL (140-400); Red Cell Distribution Width 12.3 % (11.5-14.5); Segmented Neutrophils % 62.6 %; White Blood Count 4.6 K/mcL (4.3-11.1)
[2020-10-25 10:10] LABS: Calcium 9.8 mg/dL (8.6-10.3)
[2020-10-25] MEDS ORDERED: *HR* OxyCODONE Immed Rel 5 MG TABLET PO ONE (11:18)
[2020-10-25] MEDS ORDERED: Naloxone 0.4 MG/ML INJ IVP PRN (12:10)
[2020-10-25] MEDS ORDERED: Ondansetron 4 MG/2 ML VIAL IVP PRN (12:10)
[2020-10-25] MEDS ORDERED: Acetaminophen 325 MG TABLET PO PRN (12:10)
[2020-10-25] MEDS: *HR* HYDROmorphone 2 MG TABLET PO PRN ×2 (14:26→20:42)
[2020-10-25] MEDS: hydrALAZINE 25 MG TABLET PO SCH ×2 (17:19→23:38)
[2020-10-25] MEDS: *HR* Heparin 5,000 UNIT/ML VIAL SQ SCH (17:19)
[2020-10-26] MEDS ORDERED: hydrALAZINE 25 MG TABLET PO SCH
[2020-10-26 04:35] LABS: Basophils % 0.7 %; Eosinophils # 0.3 K/mcL (0.0-0.6); Eosinophils % 4.7 %; Hematocrit 33.3 % (35.3-44.9); Hemoglobin 11.1 g/dL (11.5-15.4); Immature Granulocytes % 0.5 % (0-4); Lymphocytes # 1.8 K/mcL (0.6-4.6); Lymphocytes % 30.7 %; Mean Corpuscular HGB Conc 33.3 g/dL (31.6-35.5); Mean Corpuscular Hemoglobin 29.4 pg (28.0-33.3); Mean Corpuscular Volume 88.3 fL (83.0-100.0); Mean Platelet Volume 9.6 fL (9.4-12.4); Monocytes # 0.6 K/mcL (0.0-1.3); Monocytes % 10.8 %; Neutrophils # 3.1 K/mcL (1.6-8.9); Platelet Count 145 K/mcL (140-400); Red Blood Count 3.77 M/mcL (3.82-4.97); Red Cell Distribution Width 12.6 % (11.5-14.5); Segmented Neutrophils % 52.6 %; White Blood Count 5.9 K/mcL (4.3-11.1)
[2020-10-26 04:58] LABS: Calcium 9.2 mg/dL (8.6-10.3); Potassium 3.8 mEq/L (3.5-5.1)
[2020-10-26 05:09] LABS: Thyroid Stimulating Hormone 1.479 mcIU/mL (0.340-5.600)
[2020-10-26] MEDS: *HR* HYDROmorphone 2 MG TABLET PO PRN ×3 (05:46→20:33)
[2020-10-26] MEDS: *HR* Heparin 5,000 UNIT/ML VIAL SQ SCH ×2 (05:47→17:12)
[2020-10-26] MEDS: Aspirin Enteric Coated 81 MG Tablet PO SCH (08:11)
[2020-10-26] MEDS: Cholecalciferol (D-3) 1,000 UNIT (25MCG) TABLET PO SCH (08:12)
[2020-10-26] MEDS: hydrALAZINE 25 MG TABLET PO SCH ×2 (08:12→17:12)
[2020-10-26] MEDS: lisinopriL 10 MG TABLET PO SCH (08:12)
[2020-10-26] MEDS: Metoprolol XL (24 HR) Succ 25 MG TAB.ER.24H PO SCH (08:12)
[2020-10-26] MEDS: polyethylene glycoL 3350 17 GM POWD.PACK PO SCH ×2 (11:52→20:33)
[2020-10-26] MEDS ORDERED: Gabapentin 100 MG CAPSULE PO SCH (21:00)
[2020-10-27] MEDS: *HR* Heparin 5,000 UNIT/ML VIAL SQ SCH (05:42)
[2020-10-27 06:43] VITALS: BP 174/70
[2020-10-27] MEDS: lisinopriL 10 MG TABLET PO SCH (09:25)
[2020-10-27] MEDS: hydrALAZINE 25 MG TABLET PO SCH ×2 (09:25)
[2020-10-27] MEDS: Aspirin Enteric Coated 81 MG Tablet PO SCH (09:25)
[2020-10-27] MEDS: Cholecalciferol (D-3) 1,000 UNIT (25MCG) TABLET PO SCH (09:25)
[2020-10-27] MEDS: Metoprolol XL (24 HR) Succ 25 MG TAB.ER.24H PO SCH (09:25)
[2020-10-27] MEDS: polyethylene glycoL 3350 17 GM POWD.PACK PO SCH (09:32)
== END 2020-10-27 14:20 | disposition home health service (06) ==
LOC: EMEROOARM 08:54 → 3NENU 08:54 → SUATTDRO 12:19 → 3NENU 13:38
PROVIDERS: ADMIT Internal Medicine; ATTEND Internal Medicine